=== PATIENT | male | born 1960 | race Caucasian/White ===

== ENCOUNTER 2017-05-24 08:57 | Inpatient (IN) | payer BC ==
[~2017-05-24] VITALS: Ht 170.2 cm; Wt 90.5 kg
[2017-05-24] VITALS (7 sets, daily range): BP systolic 141–170; BP diastolic 77–88; PULSE 56–68; RESP 17–18; TEMP 97.7–98.1; O2SAT 96–100
[2017-05-24] MEDS ORDERED: HYDROmorphone HCL PF 1 MG/ML VIAL IV PUSH ONE (09:15)
[2017-05-24] MEDS ORDERED: SODIUM CHLOR 0.9% 1000 ML INJ 1,000 ML IV ONE (09:15)
[2017-05-24] MEDS ORDERED: ONDANSETRON HCL 4 MG/2 ML VIAL IV PUSH ONE (09:15)
--- NOTE | 2017-05-24 09:21 | PD ---
HPI Chief Complaint: Abdominal Pain Time Seen by Provider: 09:15 Travel History International Travel<30 days: No Contact w/Intl Traveler<30days: No Traveled to known affect area: No History of Present Illness HPI 57-year-old male patient with history of daily alcohol use, presents to the ER today with one-day history of upper abdominal pains which she currently measures at a 9 out of 10 along with nausea and vomiting. He denies any diarrhea, fevers, or any other symptoms. He states that it gets worse with movements. He denies any previous history of similar symptoms although he has had problems with gastritis once before. Modifying Factors: None Associated Signs & Symptoms: Upper abdominal pains, nausea and vomiting Risk Factors: Daily alcohol use PFSH Social History Tobacco Use: No Allergies-Medications (Allergen,Severity, Reaction): Coded Allergies: No Known Allergies (Unverified , 05/24/17) Review of Systems Except as stated in HPI: all other systems reviewed are Neg Physical Exam Narrative GENERAL: Well-developed middle age white male patient currently and moderate distress. Awake and oriented 3. SKIN: Focused skin assessment warm/dry. HEAD: Atraumatic. Normocephalic. EYES: Pupils equal and round. No scleral icterus. No injection or drainage. ENT: No nasal bleeding or discharge. Mucous membranes pink and moist. NECK: Trachea midline. No JVD. CARDIOVASCULAR: Regular rate and rhythm. No murmur appreciated. RESPIRATORY: No accessory muscle use. Clear to auscultation. Breath sounds equal bilaterally. GASTROINTESTINAL: Abdomen soft, diffuse upper abdominal tenderness without guarding or rebound, nondistended. Hepatic and splenic margins not palpable. MUSCULOSKELETAL: No obvious deformities. No clubbing. No cyanosis. No edema. NEUROLOGICAL: Awake and alert. No obvious cranial nerve deficits. Motor grossly within normal limits. Normal speech. PSYCHIATRIC: Appropriate mood and affect; insight and judgment normal. Data Data Last Documented VS Vital Signs Date Time Temp Pulse Resp B/P (MAP) Pulse Ox O2 Delivery O2 Flow Rate FiO2 05/24/17 12:08 67 17 141/82 (101) 100 Room Air 05/24/17 08:58 97.9 Orders Orders Complete Blood Count With Diff (05/24/17 09:12) Comprehensive Metabolic Panel (05/24/17 09:12) Lipase (05/24/17 09:12) Urinalysis - C+S If Indicated (05/24/17 09:12) Iv Access Insert/Monitor (05/24/17 09:12) Ecg Monitoring (05/24/17 09:12) Oximetry (05/24/17 09:12) Electrocardiogram (05/24/17 09:12) Sodium Chlor 0.9% 1000 Ml Inj (Ns 1000 M (05/24/17 09:15) Ondansetron Inj (Zofran Inj) (05/24/17 09:15) Hydromorphone Pf Inj (Dilaudid Pf Inj) (05/24/17 09:15) Ct Abd/Pel W Iv Contrast(Rout) (05/24/17 10:09) Iohexol 350 Inj (Omnipaque 350 Inj) (05/24/17 11:17) Admit Order (Ed Use Only) (05/24/17 12:05) Labs Laboratory Tests Test 05/24/17 09:25 05/24/17 10:08 White Blood Count 6.0 TH/MM3 Red Blood Count 4.61 MIL/MM3 Hemoglobin 13.8 GM/DL Hematocrit 39.6 % Mean Corpuscular Volume 85.9 FL Mean Corpuscular Hemoglobin 29.8 PG Mean Corpuscular Hemoglobin Concent 34.7 % Red Cell Distribution Width 15.3 % Platelet Count 210 TH/MM3 Mean Platelet Volume 6.9 FL Neutrophils (%) (Auto) 69.0 % Lymphocytes (%) (Auto) 16.3 % Monocytes (%) (Auto) 14.0 % Eosinophils (%) (Auto) 0.3 % Basophils (%) (Auto) 0.4 % Neutrophils # (Auto) 4.2 TH/MM3 Lymphocytes # (Auto) 1.0 TH/MM3 Monocytes # (Auto) 0.8 TH/MM3 Eosinophils # (Auto) 0.0 TH/MM3 Basophils # (Auto) 0.0 TH/MM3 CBC Comment AUTO DIFF Differential Comment AUTO DIFF CONFIRMED Blood Urea Nitrogen 9 MG/DL Creatinine 1.11 MG/DL Random Glucose 131 MG/DL Total Protein 10.3 GM/DL Albumin 4.4 GM/DL Calcium Level 9.6 MG/DL Alkaline Phosphatase 143 U/L Aspartate Amino Transf (AST/SGOT) 96 U/L Alanine Aminotransferase (ALT/SGPT) 100 U/L Total Bilirubin 2.9 MG/DL Sodium Level 135 MEQ/L Potassium Level 3.8 MEQ/L Chloride Level 104 MEQ/L Carbon Dioxide Level 23.7 MEQ/L Anion Gap 7 MEQ/L Estimat Glomerular Filtration Rate 68 ML/MIN Lipase 192 U/L Urine Color YELLOW Urine Turbidity CLEAR Urine pH 5.5 Urine Specific [place] 1.016 Urine Protein TRACE mg/dL Urine Glucose (UA) NEG mg/dL Urine Ketones NEG mg/dL Urine Occult Blood NEG Urine Nitrite NEG Urine Bilirubin NEG Urine Urobilinogen 2.0 MG/DL Urine Leukocyte Esterase NEG Urine RBC LESS THAN 1 /hpf Urine WBC LESS THAN 1 /hpf Urine Hyaline Casts 1 /lpf Urine Mucus FEW /lpf Microscopic Urinalysis Comment CULT NOT INDICATED MDM Medical Decision Making Medical Screen Exam Complete: Yes Emergency Medical Condition: Yes Medical Record Reviewed: Yes Interpretation(s) Laboratory Tests Test 05/24/17 09:25 05/24/17 10:08 Mean Platelet Volume 6.9 FL (7.0-11.0) Monocytes (%) (Auto) 14.0 % (0.0-8.0) Random Glucose 131 MG/DL (74-106) Total Protein 10.3 GM/DL (6.4-8.2) Alkaline Phosphatase 143 U/L (45-117) Aspartate Amino Transf (AST/SGOT) 96 U/L (15-37) Alanine Aminotransferase (ALT/SGPT) 100 U/L (12-78) Total Bilirubin 2.9 MG/DL (0.2-1.0) Sodium Level 135 MEQ/L (136-145) Estimat Glomerular Filtration Rate 68 ML/MIN (>89) Urine Mucus FEW /lpf (OCC) Last 24 hours Impressions Abdomen/Pelvis CT 05/24/17 1009 Signed Impressions: Service Date/Time: Monday, May 24, 2017 10:59 - CONCLUSION: Negative for an acute process. Gallstones with mild gallbladder wall thickening Mitchell Robledo MD FACR Differential Diagnosis Abdominal pain, nausea and vomiting: Gastroenteritis versus gastritis versus pancreatitis versus cholecystitis Narrative Course Lab work shows liver enzyme elevations. CAT scan was ordered for further evaluation. It shows mild gallbladder wall thickening, questionable for underlying cholecystitis. Case was initially discussed with Dr. Garnica who states that patient would need further workup and recommends medical admission and GI consult and surgical consult. Case was then discussed with Dr. Singh for admission. Diagnosis Primary Impression: Abdominal pain Additional Impression: Cholecystitis Admitting Information Admitting Physician Requests: it Quita Guzman MD May 24, 2017 09:21
[2017-05-24 09:44] LABS: AUTOMATED NEUTROPHIL # 4.2 TH/MM3 (1.8-7.7); BASOPHIL % 0.4 % (0.0-2.0); EOSINOPHIL % 0.3 % (0.0-4.0); HEMATOCRIT 39.6 % (39.0-51.0); LYMPH % 16.3 % (9.0-44.0); MEAN CELL VOLUME 85.9 FL (80.0-100.0); MEAN CORPUSCULAR HEMOGLOBIN 29.8 PG (27.0-34.0); MEAN CORPUSCULAR HGB CONC 34.7 % (32.0-36.0); PLATELET COUNT 210 TH/MM3 (150-450); RED BLOOD COUNT 4.61 MIL/MM3 (4.50-5.90); RED CELL DISTRIBUTION WIDTH 15.3 % (11.6-17.2)
[2017-05-24 09:46] LABS: HEMO FLAGS AUTO DIFF
[2017-05-24 10:00] LABS: ANION GAP 7 MEQ/L (5-15); AST (GOT) 96 U/L (15-37); BICARBONATE 23.7 MEQ/L (21.0-32.0); BLOOD UREA NITROGEN 9 MG/DL (7-18); CHLORIDE 104 MEQ/L (98-107); GLOMERULAR FILTRATION RATE 68 ML/MIN (>89); POTASSIUM 3.8 MEQ/L (3.5-5.1); SODIUM (NA) 135 MEQ/L (136-145)
[2017-05-24 10:01] LABS: ALT (GPT) 100 U/L (12-78)
[2017-05-24 10:04] LABS: ALKALINE PHOSPHATASE 143 U/L (45-117); TOTAL BILIRUBIN ADULT 2.9 MG/DL (0.2-1.0)
[2017-05-24 10:19] LABS: BLOOD, URINE NEG (NEG); COMMENT (UR) CULT NOT INDICATED; CULTURE IF INDICATED CULT NOT INDICATED; GLUCOSE,URINE NEG (NEG); HYALINE CAST, URINE 1 /lpf (RARE); KETONE, URINE NEG (NEG); MUCUS URINE FEW /lpf (OCC); NITRITE,URINE NEG (NEG); PH, URINE 5.5 (5.0-8.5); URINE COLOR YELLOW (YELLW/STRAW)
[2017-05-24 10:42] LABS: SCAN/DIFF AUTO DIFF CONFIRMED
[2017-05-24] MEDS ORDERED: IOHEXOL 350 MG/ML 10 ML VIAL (for RAD DIAG) IVCONTRAST ONE (11:17)
--- NOTE | 2017-05-24 11:28 | RADRPT ---
EXAM DATE/TIME: 05/24/2017 10:59 [facility] COMPARISON: No previous studies available for comparison. INDICATIONS : Nausea, vomiting and abdominal pain since last night. IV CONTRAST: 97 cc Omnipaque 350 (iohexol) IV ORAL CONTRAST: No oral contrast ingested. RADIATION DOSE: 8.43 CTDIvol (mGy) MEDICAL HISTORY : None SURGICAL HISTORY : None. ENCOUNTER: Initial ACUITY: 1 day PAIN SCALE: 4/10 LOCATION: chest TECHNIQUE: Volumetric scanning of the abdomen and pelvis was performed. Using automated exposure control and ad justment of the mA and/or kV according to patient size, radiation dose was kept as low as reasonably achievable to obtain optimal diagnostic quality images. DICOM format image data is available electro nically for review and comparison. FINDINGS: The lung base is are clear. The liver, spleen, pancreas unremarkable Gallstones with minimal gallbladder wall thickening is evident. Hiatal hernia is noted. There is symmetric renal function Bowel gas pattern is unremarkable. Pelvic contents appear normal Abdominal wall is intact There is no colitis. There is retrograde or adenopathy. CONCLUSION: Negative for an acute process. Gallstones with mild gallbladder wall thickening Mitchell Robledo MD FACR on May 24, 2017 at 11:24 Board Certified Radiologist. This report was verified electronically.
[2017-05-24] MEDS ORDERED: ACETAMINOPHEN 325 MG TAB PO PRN (12:15)
[2017-05-24] MEDS ORDERED: ENALAPRILAT 1.25 MG/ML VIAL IV PUSH PRN (12:15)
[2017-05-24] MEDS ORDERED: HYDROmorphone HCL PF 0.5 MG/0.5 ML SYRINGE IV PUSH PRN (12:15)
[2017-05-24] MEDS ORDERED: ONDANSETRON HCL 4 MG/2 ML VIAL IV PUSH PRN (12:15)
--- NOTE | 2017-05-24 12:31 | HHI.HP ---
[facility] Service [facility] Primary Care Physician Unknown Admission Diagnosis abdominal pain/elevated liver enzymes/cholecystitis Diagnoses: (1) Abdominal pain Diagnosis: Principal (2) Cholecystitis Diagnosis: Principal Chief Complaint: abdominal pain Travel History International Travel<30 Days: No Contact w/Intl Traveler <30 Da: No Traveled to Known Affected Are: No History of Present Illness patient is a 57 y/o male with history of RA, with history of chronic alcohol abuse, presented to ER with abdominal pain. he says that the pain started around 3 in the morning. pain was epigastric and severe in intensity. pain was associated with some nausea, a few episodes of emesis and some diarrhea. he denies any fever or chills. he says that he had similar episode of abdominal pain about a year ago and he was told that he had ' an ulcer'. pain was mild at the time of my evaluation. Review of Systems Constitutional: DENIES: Fever, Weight loss, Chills, Night Sweats Eyes: DENIES: Blurred vision, Diplopia, Vision loss, Double Vision Ears, nose, mouth, throat: DENIES: Tinnitus, Vertigo, Throat pain, Epistaxis Respiratory: DENIES: Apneas, Cough, Snoring, Wheezing, Hemoptysis, Sputum production, Shortness of breath Cardiovascular: DENIES: Chest pain, Palpitations, Syncope, Dyspnea on Exertion , PND, Lower Extremity Edema, Orthopnea, Claudication Gastrointestinal: COMPLAINS OF: Abdominal pain, Diarrhea, Nausea, Vomiting, DENIES: Black stools, Bloody stools, Constipation, Difficulty Swallowing, Anorexia Genitourinary: DENIES: Urinary frequency, Urgency, Hematuria, Dysuria Musculoskeletal: DENIES: Joint pain, Muscle aches, Stiffness, Joint Swelling Integumentary: DENIES: Rash Neurologic: DENIES: Abnormal gait, Headache, Localized weakness, Paresthesias, Seizures, Speech Problems, Tremor, Poor Balance Psychiatric: DENIES: Anxiety, Confusion, Mood changes, Depression, Hallucinations, Agitation, Suicidal Ideation, Homicidal Ideation, Delusions Past Family Social History Past Medical History rheumatoid arthritis. Past Surgical History surgery on the right upper extremity. Reported Medications to be verified. Allergies: Coded Allergies: No Known Allergies (Unverified , 05/24/17) Active Ordered Medications Current Medications Sodium Chloride 1,000 ml @ 999 mls/hr BOLUS ONCE IV Last administered on 09:33; Start 05/24/17 at 09:15; Stop 05/24/17 at 10:15; Status DC Ondansetron HCl (Zofran Inj) 4 mg ONCE ONCE IV PUSH Last administered on 05/24 09:34; Start 05/24/17 at 09:15; Stop 05/24/17 at 09:16; Status DC Hydromorphone HCl (Dilaudid Pf Inj) 1 mg ONCE ONCE IV PUSH Last administered on 05/24/17 09:34; Start 05/24/17 at 09:15; Stop 05/24/17 at 09:16; Status DC Iohexol (Omnipaque 350 Inj) 97 ml STK-MED ONCE IVCONTRAST Last administered on 05/24/17 11:17; Start 05/24/17 at 11:17; Stop 05/24/17 at 11:18; Status DC Family History not relevant to this presentation. Social History quit smoking years ago. drinks ten beers a day. Physical Exam Vital Signs Vital Signs Date Time Temp Pulse Resp B/P (MAP) Pulse Ox O2 Delivery O2 Flow Rate FiO2 05/24/17 10:34 17 05/24/17 10:09 68 17 161/86 (111) 99 Room Air 05/24/17 09:39 68 17 170/88 (115) 99 Room Air 05/24/17 08:58 97.9 56 18 167/86 (113) 100 Room Air Physical Exam GENERAL: This is a well-nourished, well-developed patient, in no apparent distress. SKIN: No rashes, ecchymoses or lesions. Cool and dry. HEAD: Atraumatic. Normocephalic. No temporal or scalp tenderness. EYES: Pupils equal round and reactive. Extraocular motions intact. No scleral icterus. No injection or drainage. ENT: Nose without bleeding, purulent drainage or septal hematoma. Throat without erythema, tonsillar hypertrophy or exudate. Uvula midline. Airway patent. NECK: Trachea midline. No JVD or lymphadenopathy. Supple, nontender, no meningeal signs. CARDIOVASCULAR: Regular rate and rhythm without murmurs, gallops, or rubs. RESPIRATORY: Clear to auscultation. Breath sounds equal bilaterally. No wheezes , rales, or rhonchi. GASTROINTESTINAL: Abdomen soft, mild epigastric tenderness, nondistended. No hepato-splenomegaly, or palpable masses. No guarding. MUSCULOSKELETAL: Extremities without clubbing, cyanosis, or edema. No joint tenderness, effusion, or edema noted. No calf tenderness. Negative Homans sign bilaterally. NEUROLOGICAL: Awake and alert. Cranial nerves II through XII intact. Motor and sensory grossly within normal limits. Five out of 5 muscle strength in all muscle groups. Normal speech. Laboratory Laboratory Tests Test 05/24/17 09:25 05/24/17 10:08 White Blood Count 6.0 Red Blood Count 4.61 Hemoglobin 13.8 Hematocrit 39.6 Mean Corpuscular Volume 85.9 Mean Corpuscular Hemoglobin 29.8 Mean Corpuscular Hemoglobin Concent 34.7 Red Cell Distribution Width 15.3 Platelet Count 210 Mean Platelet Volume 6.9 Neutrophils (%) (Auto) 69.0 Lymphocytes (%) (Auto) 16.3 Monocytes (%) (Auto) 14.0 Eosinophils (%) (Auto) 0.3 Basophils (%) (Auto) 0.4 Neutrophils # (Auto) 4.2 Lymphocytes # (Auto) 1.0 Monocytes # (Auto) 0.8 Eosinophils # (Auto) 0.0 Basophils # (Auto) 0.0 CBC Comment AUTO DIFF Differential Comment AUTO DIFF CONFIRMED Blood Urea Nitrogen 9 Creatinine 1.11 Random Glucose 131 Total Protein 10.3 Albumin 4.4 Calcium Level 9.6 Alkaline Phosphatase 143 Aspartate Amino Transf (AST/SGOT) 96 Alanine Aminotransferase (ALT/SGPT) 100 Total Bilirubin 2.9 Sodium Level 135 Potassium Level 3.8 Chloride Level 104 Carbon Dioxide Level 23.7 Anion Gap 7 Estimat Glomerular Filtration Rate 68 Lipase 192 Urine Color YELLOW Urine Turbidity CLEAR Urine pH 5.5 Urine Specific [place] 1.016 Urine Protein TRACE Urine Glucose (UA) NEG Urine Ketones NEG Urine Occult Blood NEG Urine Nitrite NEG Urine Bilirubin NEG Urine Urobilinogen 2.0 Urine Leukocyte Esterase NEG Urine RBC LESS THAN 1 Urine WBC LESS THAN 1 Urine Hyaline Casts 1 Urine Mucus FEW Microscopic Urinalysis Comment CULT NOT INDICATED Result Diagram: 05/24/1792405/24/17924 Imaging Last Impressions Abdomen/Pelvis CT 05/24/17 1009 Signed Impressions: Service Date/Time: Wednesday, May 24, 2017 10:59 - CONCLUSION: Negative for an acute process. Gallstones with mild gallbladder wall thickening Mitchell Robledo MD FACR EKG; sinus rhythm with no acute ST-T changes. Caprini VTE Risk Assessment Caprini VTE Risk Assessment: Mod/High Risk (score >= 2) Caprini Risk Assessment Model Point Value = 1 Point Value = 2 Point Value = 3 Point Value = 5 Age 41-60 Minor surgery BMI > 25 kg/m2 Swollen legs Varicose veins or History of unexplained or recurrent spontaneous Oral contraceptives or hormone replacement Sepsis (< 1 month) Serious lung disease, including pneumonia (< 1 month) Abnormal pulmonary function Acute myocardial infarction Congestive heart failure (< 1 month) History of inflammatory bowel disease Medical patient at bed rest Age 61-74 Arthroscopic surgery Major open surgery (> 45 min) Laparoscopic surgery (> 45 min) Malignancy Confined to bed (> 72 hours) Immobilizing plaster cast Central venous access Age >= 75 History of VTE Family history of VTE Factor V Leiden Prothrombin [id number] Lupus anticoagulant Anticardiolipin antibodies Elevated serum homocysteine Heparin-induced thrombocytopenia Other congenital or acquired thrombophilia Stroke (< 1 month) Elective arthroplasty Hip, pelvis, or leg fracture Acute spinal cord injury (< 1 month) Prophylaxis Regimen Total Risk Factor Score Risk Level Prophylaxis Regimen 0-1 Low Early ambulation 2 Moderate Order ONE of the following: *Sequential Compression Device (SCD) *Heparin 5000 units SQ BID 3-4 Higher Order ONE of the following medications: *Heparin 5000 units SQ TID *Enoxaparin/Lovenox 40 mg SQ daily (WT < 150 kg, CrCl > 30 mL/min) *Enoxaparin/Lovenox 30 mg SQ daily (WT < 150 kg, CrCl > 10-29 mL/min) *Enoxaparin/Lovenox 30 mg SQ BID (WT < 150 kg, CrCl > 30 mL/min) AND/OR *Sequential Compression Device (SCD) 5 or more Highest Order ONE of the following medications: *Heparin 5000 units SQ TID (Preferred with Epidurals) *Enoxaparin/Lovenox 40 mg SQ daily (WT < 150 kg, CrCl > 30 mL/min) *Enoxaparin/Lovenox 30 mg SQ daily (WT < 150 kg, CrCl > 10-29 mL/min) *Enoxaparin/Lovenox 30 mg SQ BID (WT < 150 kg, CrCl > 30 mL/min) AND *Sequential Compression Device (SCD) Assessment and Plan Assessment and Plan A/P - abdominal pain with cholelithiasis / elevated LFT's and history of chronic alcohol abuse keep NPO for now- continue with supportive care with IV fluid- antiemetics and pain control. check hepatitis panel- consult general surgery and GI. repeat LFT's in am. -alcohol abuse; watch for withdrawal- place on CIWA protocol. advised to stop drinking. -history of rheumatoid arthritis- f/u as outpatient. -DVT prophylaxis with SCD's- pending surgery and GI evaluation. Discussed Condition With ER physician and the patient. Physician Certification 2 Midnight Certification Type: Admission for Inpatient Services Order for Inpatient Services The services are ordered in accordance with Medicare regulations or non- Medicare payer requirements, as applicable. In the case of services not specified as inpatient-only, they are appropriately provided as inpatient services in accordance with the 2-midnight benchmark. Estimated LOS (days): 2 days is the estimated time the patient will need to remain in the hospital, assuming treatment plan goals are met and no additional complications. Post-Hospital Plan: Home Problem Qualifiers (1) Abdominal pain: Qualified Codes: R10.13 - Epigastric pain Marge Mccarty MD May 24, 2017 12:31
[2017-05-24] MEDS ORDERED: LORazepam 1 MG TAB PO PRN (12:45)
[2017-05-24] MEDS ORDERED: LORazepam 2 MG/ML VIAL IV PUSH PRN ×4 (12:45)
[2017-05-24] MEDS ORDERED: FLUMAZENIL 0.5 MG/5 ML VIAL IV PUSH PRN (12:45)
[2017-05-24] MEDS ORDERED: LORazepam 2 MG TAB PO PRN (12:45)
--- NOTE | 2017-05-24 12:53 | EKG ---
Date Performed: 05/24/2017 Time Performed: 09:46:06 PTAGE: 57 years EKG: Baseline artifact present Probable Sinus rhythm WITH SINUS ARRHYTHMIA PROLONGED QT INTERVAL ABNORMAL ECG INTERPRETATION BASED ON A DEFAULT AGE OF 39 YEARS NO PREVIOUS TRACING DOCTOR: Ehsan Lawrence Interpretating Date/Time 05/24/2017 12:51:14
--- NOTE | 2017-05-24 13:32 | MB ---
cc: SILVANO MARUQIS M.D. DATE OF CONSULTATION: 05/24/2017 REASON FOR CONSULTATION Cholecystitis. HISTORY OF PRESENT ILLNESS The patient is a 57-year-old male with a history of rheumatoid arthritis and chronic alcohol abuse as well as previous extensive smoking history, who presented to the ER with abdominal pain of one-day duration. The patient reports that this started after eating nachos. He had an episode about a year ago and was told he had an ulcer up in [place] when he was seen in urgent care. He does have a family doctor [place] [employer]. The patient reports that he had some emesis and diarrhea as well as nausea. The patient has had a CT scan which demonstrates slightly thickened gallbladder wall and gallstones. REVIEW OF SYSTEMS Negative except for GI with abdominal pain, nausea, vomiting and diarrhea. PAST MEDICAL HISTORY 1. 23-weql-eard smoking history, quit in 2008. He does not require oxygen. 2. Rheumatoid arthritis. PAST SURGICAL HISTORY He had surgery on both wrists with plates and screws. He is also has pins in the left hip from a fall. ALLERGIES The patient has no known allergies. HE DOES NOT HAVE AN ALLERGY TO ATIVAN, BUT HE HAS AN IDIOSYNCRATIC REACTION WHERE HE CANNOT REMEMBER ANYTHING AND BECOMES UNRULY. MEDICATIONS He is not on any medications. SOCIAL HISTORY He drinks 10 beers a day. He states he quit about 6 months ago and had no withdrawal symptoms. PHYSICAL EXAMINATION GENERAL: A male who appears comfortable. VITAL SIGNS: BP 141/82, pulse 67, respirations 17, 100% saturation on room air. HEENT: Sclera anicteric. CHEST: Clear to auscultation. CARDIAC: Regular rate rhythm. ABDOMEN: Mild epigastric pain without guarding or rebound. There is very minimal right upper quadrant pain with no guarding. The patient has a 2 cm umbilical hernia that is reducible and mildly tender to palpation. There are no groin hernias. EXTREMITIES: Pulses are intact. NEUROLOGIC: Nonfocal. LABORATORY WBC 6.0, platelets 210,000. Sodium 135, potassium 3.8, BUN 9, creatinine 1.1, total bilirubin 2.9, AST 96, ALT 100, alkaline phosphatase 143, total protein 10.3, lipase 192. Urinalysis is negative except for trace protein. IMAGING Imaging demonstrates findings with slightly thickened gallbladder wall and gallstones. There is no acute process noted. ASSESSMENT Cholecystitis with possible choledocholithiasis. The patient also has mild hypertension, although this may be secondary to his pain. Multiple other vital signs demonstrate elevated diastolic blood pressure. The patient does not follow-up regularly with the family physician. PLAN/RECOMMENDATIONS Would recommend consideration of blood pressure medicine while he is in the hospital to be started and GI input. Will order repeat liver function tests. Not sure whether he would be able to have MRCP due to his hardware in his wrists and his hip. Simple follow-up labs tomorrow may reveal whether or not he has passed a gallstone. If they remain elevated he may require ERCP. We will await GI input. I have discussed with the patient and his that if he has any procedures tomorrow then surgery could be performed on Monday. I have discussed with them preliminarily risks of surgery including but not limited to bleeding, infection, bile duct injury, bowel injury, possible need for drainage, postoperative endoscopy, or reoperation. They vocalize understanding and are agreeable to the plan of action. MD ANTHONY Mckoy/LUIS /1:00 PM /1:10 PM
[2017-05-24] MEDS: SODIUM CHLOR 0.9% 1000 ML INJ 1,000 ML IV SCH ×2 (13:52→22:19)
--- NOTE | 2017-05-24 15:27 | PD.CONS ---
HPI History of Present Illness This is a 57 year old male with hx ETOH abuse, RA on remicade, who presented with abd pain, n/v, loose stool that started this morning. THe pain is all over his abd, no aggravating or relieving factors. He is feeling better after dilaudid in ED. He had similar episode 1 year ago. Denies blood in emesis, blood in stool, black tarry stool, jaundice, fever, weight loss. Never had EGD or colonoscopy. (Michelle Thurston) PFSH Past Medical History rheumatoid arthritis. Past Surgical History hardware placement both wrists pinning left hip (Michelle Thurston) Coded Allergies: lorazepam (Verified Adverse Reaction, Unknown, Irritability/Anxiety, 05/24) STATES "IT MAKES ME GO CRAZY" Family History denies Social History quit smoking years ago. drinks ten beers a day. (Michelle Thurston) Review of Systems Constitutional: DENIES: Fever Endocrine: DENIES: Polydipsia Eyes: DENIES: Blurred vision Ears, nose, mouth, throat: DENIES: Hearing loss Respiratory: DENIES: Cough Cardiovascular: DENIES: Chest pain Gastrointestinal: COMPLAINS OF: Abdominal pain, Diarrhea, Nausea, Vomiting, DENIES: Black stools, Bloody stools, Constipation, Hematemesis Genitourinary: DENIES: Hematuria Musculoskeletal: DENIES: Joint Swelling Integumentary: DENIES: Rash Hematologic/lymphatic: DENIES: Bruising Neurologic: DENIES: Abnormal gait Psychiatric: DENIES: Confusion (Michelle Thurston) GI Exam Vitals I&O Vital Signs Date Time Temp Pulse Resp B/P (MAP) Pulse Ox O2 Delivery O2 Flow Rate FiO2 05/24/17 15:00 97.7 59 18 148/85 (106) 97 05/24/17 14:21 05/24/17 14:05 68 17 153/85 (107) 100 Room Air 05/24/17 12:08 67 17 141/82 (101) 100 Room Air 05/24/17 10:34 17 05/24/17 10:09 68 17 161/86 (111) 99 Room Air 05/24/17 09:39 68 17 170/88 (115) 99 Room Air 05/24/17 08:58 97.9 56 18 167/86 (113) 100 Room Air I/O 05/23/17 05/23/17 05/23/17 05/24/17 05/24/17 05/24/17 07:00 15:00 23:00 07:00 15:00 23:00 Intake Total 1000 ml Balance 1000 ml Intake IV Total 1000 ml Imaging Last Impressions Abdomen/Pelvis CT 05/24/17 1009 Signed Impressions: Service Date/Time: Wednesday, May 24, 2017 10:59 - CONCLUSION: Negative for an acute process. Gallstones with mild gallbladder wall thickening Mitchell Robledo MD FACR Laboratory Test 05/24/17 09:25 05/24/17 10:08 White Blood Count 6.0 TH/MM3 Red Blood Count 4.61 MIL/MM3 Hemoglobin 13.8 GM/DL Hematocrit 39.6 % Mean Corpuscular Volume 85.9 FL Mean Corpuscular Hemoglobin 29.8 PG Mean Corpuscular Hemoglobin Concent 34.7 % Red Cell Distribution Width 15.3 % Platelet Count 210 TH/MM3 Mean Platelet Volume 6.9 FL Neutrophils (%) (Auto) 69.0 % Lymphocytes (%) (Auto) 16.3 % Monocytes (%) (Auto) 14.0 % Eosinophils (%) (Auto) 0.3 % Basophils (%) (Auto) 0.4 % Neutrophils # (Auto) 4.2 TH/MM3 Lymphocytes # (Auto) 1.0 TH/MM3 Monocytes # (Auto) 0.8 TH/MM3 Eosinophils # (Auto) 0.0 TH/MM3 Basophils # (Auto) 0.0 TH/MM3 CBC Comment AUTO DIFF Differential Comment AUTO DIFF CONFIRMED Blood Urea Nitrogen 9 MG/DL Creatinine 1.11 MG/DL Random Glucose 131 MG/DL Total Protein 10.3 GM/DL Albumin 4.4 GM/DL Calcium Level 9.6 MG/DL Alkaline Phosphatase 143 U/L Aspartate Amino Transf (AST/SGOT) 96 U/L Alanine Aminotransferase (ALT/SGPT) 100 U/L Total Bilirubin 2.9 MG/DL Sodium Level 135 MEQ/L Potassium Level 3.8 MEQ/L Chloride Level 104 MEQ/L Carbon Dioxide Level 23.7 MEQ/L Anion Gap 7 MEQ/L Estimat Glomerular Filtration Rate 68 ML/MIN Lipase 192 U/L Urine Color YELLOW Urine Turbidity CLEAR Urine pH 5.5 Urine Specific [place] 1.016 Urine Protein TRACE mg/dL Urine Glucose (UA) NEG mg/dL Urine Ketones NEG mg/dL Urine Occult Blood NEG Urine Nitrite NEG Urine Bilirubin NEG Urine Urobilinogen 2.0 MG/DL Urine Leukocyte Esterase NEG Urine RBC LESS THAN 1 /hpf Urine WBC LESS THAN 1 /hpf Urine Hyaline Casts 1 /lpf Urine Mucus FEW /lpf Microscopic Urinalysis Comment CULT NOT INDICATED Physical Examination HEENT: PERRL; normocephalic; atraumatic; no jaundice. CHEST: CTA CARDIAC: RRR ABDOMEN: Soft, mildly distended, mild diffuse TTP; no hepatosplenomegaly; bowel sounds are present in all four quadrants. EXTREMITIES: No clubbing, cyanosis, or edema. SKIN: Normal; no rash; no jaundice. MARKER SHIPMENTS: No focal deficits; alert and oriented times three. (Michelle Thurston) Assessment and Plan Plan - abd pain, n/v, diarrhea, elevated LFTs - unclear etiology could be gallstones. CT showed gallstones with minimal GB wall thickening. LFTs elevated obstructive pattern. Never had EGD or colonoscopy. heavy drinker. has evaluated, plasn for cholecystectomy poss monday. spoke with radiology , he can have MRCP PLAN - MRCP - NPO until after MRCP - rck LFTs in am - await hepatitis panel - supportive care - further recs to follow This pt seen by myself and Dr Grijalva and this note is written on her behalf (Michelle Thurston) Physician Comments seen, examined agree with above await mrcp report screening for hepatitis c avoid etoh if mrcp negative consider liver biopsy at the time of cholecystectomy cleat liquid diet (Magalys Grijalva MD) Michelle Thurston May 24, 2017 15:27 Magalys Grijalva MD May 24, 2017 19:47
--- NOTE | 2017-05-24 20:29 | RADRPT ---
EXAM DATE/TIME: 05/24/2017 18:09 [facility] COMPARISON: CT ABDOMEN & PELVIS W CONTRAST, May 24, 2017, 10:59. INDICATIONS : Abdominal pain. Elevated liver enzymes. MEDICAL HISTORY : None. SURGICAL HISTORY : Pin in left hip. Plates in bilateral wrists. ENCOUNTER: Subsequent ACUITY: 2 day PAIN SCORE: 0/10 LOCATION: Abdomen. TECHNIQUE: Multiplanar, multisequence magnetic resonance imaging of the abdomen was performed. High-resolution 3D dataset was utilized to reconstruct maximum-intensity projection (MIP) images. FINDINGS: INTRAHEPATIC BILE DUCTS: Within normal limits. No significant anatomical variant is present. EXTRAHEPATIC BILE DUCTS: The common bile duct measures 3 mm. No stone or filling defect is identified. GALLBLADDER: Small stones in the gallbladder lumen. There appears to be some gallbladder wall thickening. LIVER: Normal size with abnormal signal intensity. Increased T1 and diminished T2 signal with some signal lo ss on the opposed phase imaging characteristic of fatty infiltration. No concerning liver lesion is i dentified on this non-contrast exam. PANCREAS: The main pancreatic duct is normal in size. There is no significant anatomical variant. Signal inte nsity is within normal limits. No mass is visualized on this non-contrast exam. OTHER: The remaining visualized structures demonstrate no acute abnormality on this non-contrast exam. Small to moderate hiatal hernia. CONCLUSION: 1. Cholelithiasis with some gallbladder wall thickening. 2. No intra-or extrahepatic biliary ductal dilatation. 3. Diffuse hepatic fatty infiltration. 4. Small to moderate hiatal hernia. Gonzales Reese MD on May 24, 2017 at 20:21 Board Certified Radiologist. This report was verified electronically.
[2017-05-24 21:08] LABS: INTERNATIONAL NORMALIZED RATIO 1.1 RATIO; PROTHROMBIN TIME - PATIENT 12.7 SEC (9.8-11.6)
[2017-05-25] VITALS (8 sets, daily range): BP systolic 127–159; BP diastolic 70–87; PULSE 52–84; RESP 16–20; TEMP 97.4–98.4; O2SAT 94–98
[2017-05-25] MEDS: SODIUM CHLOR 0.9% 1000 ML INJ 1,000 ML IV SCH ×2 (02:02→18:18)
[2017-05-25 09:10] LABS: ALKALINE PHOSPHATASE 105 U/L (45-117); ALT (GPT) 78 U/L (12-78); ANION GAP 7 MEQ/L (5-15); AST (GOT) 83 U/L (15-37); BLOOD UREA NITROGEN 7 MG/DL (7-18); CHLORIDE 105 MEQ/L (98-107); GLOMERULAR FILTRATION RATE 93 ML/MIN (>89); POTASSIUM 3.6 MEQ/L (3.5-5.1); SODIUM (NA) 138 MEQ/L (136-145)
[2017-05-25] MEDS ORDERED: INFLUENZA VIRUS VACCINE (QUADRIVALENT) 0.5 ML SYR IM ONE (10:00)
[2017-05-25] MEDS ORDERED: PNEUMOCOCCAL POLYVALENT INJ 25 MCG/0.5 ML SYR IM ONE (10:00)
--- NOTE | 2017-05-25 11:53 | HHI.PR ---
Subjective Remarks He would like to eat. Abdominal pain is better. Objective Vitals Vital Signs Date Time Temp Pulse Resp B/P (MAP) Pulse Ox O2 Delivery O2 Flow Rate FiO2 05/25/17 07:59 97.8 62 20 139/84 (102) 95 05/25/17 04:18 97.4 52 18 127/76 (93) 97 05/25/17 00:05 97.9 65 20 140/73 (95) 94 05/24/17 19:38 98.1 63 18 164/77 (106) 96 05/24/17 15:00 97.7 59 18 148/85 (106) 97 05/24/17 14:21 05/24/17 14:05 68 17 153/85 (107) 100 Room Air 05/24/17 12:08 67 17 141/82 (101) 100 Room Air I/O 05/24/17 05/24/17 05/24/17 05/25/17 05/25/17 05/25/17 07:00 15:00 23:00 07:00 15:00 23:00 Intake Total 1000 ml 904 ml Balance 1000 ml 904 ml Intake IV Total 1000 ml 904 ml # Voids 2 # Bowel Movements 0 Result Diagram: 05/24/17 0925 05/25/17 0725 Imaging Last Impressions Abdomen/Pelvis CT 05/24/17 1009 Signed Impressions: Service Date/Time: Wednesday, May 24, 2017 10:59 - CONCLUSION: Negative for an acute process. Gallstones with mild gallbladder wall thickening Mitchell Robledo MD FACR Cholangiopancreatography MRI 05/24/17 0000 Signed Impressions: Service Date/Time: Wednesday, May 24, 2017 18:09 - CONCLUSION: 1. Cholelithiasis with some gallbladder wall thickening. 2. No intra-or extrahepatic biliary ductal dilatation. 3. Diffuse hepatic fatty infiltration. 4. Small to moderate hiatal hernia. Gonzales Reese MD Objective Remarks GENERAL: This is a well-nourished, well-developed patient, in no apparent distress. CARDIOVASCULAR: Normal rate and regular rhythm without murmurs, gallops, or rubs. RESPIRATORY: Good respiratory efforts. Breath sounds equal and clear to auscultation bilaterally. GASTROINTESTINAL: Abdomen soft, mild diffuse tenderness to palpation. Normal active bowel sounds MUSCULOSKELETAL: Extremities without cyanosis, or edema. NEURO: Alert & Oriented x4 to person, place, time, situation. Moves all ext x4 PSYCH: Appropriate mood and affect. A/P Problem List: (1) Abdominal pain ICD Code: R10.9 - Unspecified abdominal pain Status: Acute (2) Cholelithiasis ICD Code: K80.20 - Calculus of gallbladder without cholecystitis without obstruction Assessment and Plan 57-year-old male admitted with cholelithiasis and elevated LFT. Abdominal pain with cholelithiasis / elevated LFT's and history of chronic alcohol abuse - GI and general surgery following. Status post MRCP which is not reveal any acute obstruction but does have cholelithiasis. - Surgery planning for cholecystectomy tomorrow. Elevated LFTs: MRCP results as above. Likely patient passed a stone. - Continue to monitor. GI following. Alcohol abuse; watch for withdrawal- place on CIWA protocol. advised to stop drinking. -History of rheumatoid arthritis- f/u as outpatient. -DVT prophylaxis with SCD's- pending surgery Problem Qualifiers (1) Abdominal pain: Qualified Codes: R10.13 - Epigastric pain Shaun Keenan MD May 25, 2017 11:53
--- NOTE | 2017-05-25 12:52 | HHI.GIFU ---
Subjective Remarks Resting in bed. Wants to eat. States he is not having any abdominal pain at this time. No n/v. States plan is for surgery tomorrow (Angela Gilman) Objective Vitals I&O Vital Signs Date Time Temp Pulse Resp B/P (MAP) Pulse Ox O2 Delivery O2 Flow Rate FiO2 05/25/17 11:58 98.1 62 20 155/85 (108) 98 05/25/17 07:59 97.8 62 20 139/84 (102) 95 05/25/17 04:18 97.4 52 18 127/76 (93) 97 05/25/17 00:05 97.9 65 20 140/73 (95) 94 05/24/17 19:38 98.1 63 18 164/77 (106) 96 05/24/17 15:00 97.7 59 18 148/85 (106) 97 05/24/17 14:21 05/24/17 14:05 68 17 153/85 (107) 100 Room Air I/O 05/24/17 05/24/17 05/24/17 05/25/17 05/25/17 05/25/17 07:00 15:00 23:00 07:00 15:00 23:00 Intake Total 1000 ml 904 ml Balance 1000 ml 904 ml Intake IV Total 1000 ml 904 ml # Voids 2 # Bowel Movements 0 Laboratory Laboratory Tests Test 05/24/17 19:21 05/25/17 07:25 Prothrombin Time 12.7 Prothromb Time International Ratio 1.1 Hepatitis A IgM Antibody NEGATIVE Hepatitis B Surface Antigen NEGATIVE Hepatitis B Core IgM Antibody NEGATIVE Hepatitis C Antibody NEGATIVE Blood Urea Nitrogen 7 Creatinine 0.85 Random Glucose 93 Total Protein 7.3 Albumin 3.1 Calcium Level 7.9 Alkaline Phosphatase 105 Aspartate Amino Transf (AST/SGOT) 83 Alanine Aminotransferase (ALT/SGPT) 78 Total Bilirubin 3.0 Sodium Level 138 Potassium Level 3.6 Chloride Level 105 Carbon Dioxide Level 26.0 Anion Gap 7 Estimat Glomerular Filtration Rate 93 Imaging Last Impressions Abdomen/Pelvis CT 05/24/17 1009 Signed Impressions: Service Date/Time: Wednesday, May 24, 2017 10:59 - CONCLUSION: Negative for an acute process. Gallstones with mild gallbladder wall thickening Mitchell Robledo MD FACR Cholangiopancreatography MRI 05/24/17 0000 Signed Impressions: Service Date/Time: Wednesday, May 24, 2017 18:09 - CONCLUSION: 1. Cholelithiasis with some gallbladder wall thickening. 2. No intra-or extrahepatic biliary ductal dilatation. 3. Diffuse hepatic fatty infiltration. 4. Small to moderate hiatal hernia. Gonzales Reese MD Physical Exam HEENT: Normocephalic; atraumatic; no jaundice. CHEST: CTA CARDIAC: RRR ABDOMEN: Soft, protuberant, nondistended, nontender; no hepatosplenomegaly; bowel sounds are present in all four quadrants. EXTREMITIES: No clubbing, cyanosis, or edema. SKIN: Normal; no rash; no jaundice. DESIGN MAINTENANCE ENGINEER: No focal deficits; alert and oriented times three. (Angela Gilman) Assessment and Plan Plan ASSESSMENT: - Abdominal pain. CT Scan abdomen and pelvis (05/24/17)--> Negative for an acute process. Gallstones with mild gallbladder wall thickening. MRCP (05/24/17)---> Cholelithiasis with some gallbladder wall thickening, no intra-or extrahepatic biliary ductal dilatation, diffuse hepatic fatty infiltration. Small to moderate hiatal hernia. GS following, plan is for Lap. Cholecystectomy with liver biopsy tomorrow. States abdominal pain much improved today. - Elevated LFTs. MRCP did not appreciate obstruction. T> Bili 3.0, AST 83, ALT 78, Alk Phosph 105. Hepatitis profile pending. Plan is for liver biopsy at time of cholecystectomy PLAN - Low fat diet - NPO after MN - Await hepatitis profile - GS following, plan for lap. kayy with liver biopsy tomorrow - Supportive care - Further recommendations to follow based on results of above - This pt seen by myself and Dr Grijalva and this note is written on her behalf (Angela Gilman) Angela Gilman May 25, 2017 12:52 Magalys Grijalva MD May 25, 2017 18:01
--- NOTE | 2017-05-25 14:14 | HHI.PR ---
cc: Andrea Garnica MD Subjective Subjective Notes Resting in bed No issues Objective Vitals/I&O Vital Signs Date Time Temp Pulse Resp B/P (MAP) Pulse Ox O2 Delivery O2 Flow Rate FiO2 05/25/17 11:58 98.1 62 20 155/85 (108) 98 05/24/17 14:05 Room Air Labs Laboratory Tests Test 05/24/17 19:21 05/25/17 07:25 Prothrombin Time 12.7 Prothromb Time International Ratio 1.1 Hepatitis A IgM Antibody NEGATIVE Hepatitis B Surface Antigen NEGATIVE Hepatitis B Core IgM Antibody NEGATIVE Hepatitis C Antibody NEGATIVE Blood Urea Nitrogen 7 Creatinine 0.85 Random Glucose 93 Total Protein 7.3 Albumin 3.1 Calcium Level 7.9 Alkaline Phosphatase 105 Aspartate Amino Transf (AST/SGOT) 83 Alanine Aminotransferase (ALT/SGPT) 78 Total Bilirubin 3.0 Sodium Level 138 Potassium Level 3.6 Chloride Level 105 Carbon Dioxide Level 26.0 Anion Gap 7 Estimat Glomerular Filtration Rate 93 Cardiovascular: Regular Lungs: Clear Abdomen: Other (minimal RUQ pain with palpation ) Extremities: No edema A/P Assessment and Plan 57 year old male with cholelithiasis -MRCP shows no dilatation of the common bile duct -T-bili remains elevated; recheck in AM -Diet today; NPO after MN -Plan for OR tomorrow for lap kayy;liver bx tomorrow Attending Note - Dr. Garnica Patient seen and examined Abdominal pain much better Most of bilirubin elevation is due to indirect component; likely intracellular dz The exam, history, and the medical decision-making described in the above note were completed with the assistance of the mid-level provider. I reviewed and agree with the findings presented. I attest that I had a [id number] encounter with the patient on the same day, and personally performed and documented my assessment and findings in the medical record. Gaviota Carrizales May 25, 2017 14:14 Andrea Garnica MD May 26, 2017 10:11
[2017-05-25 14:54] LABS: INDIRECT BILIRUBIN 2.3 MG/DL (0.0-0.8)
[2017-05-26 04:29] VITALS: BP 154/89; PULSE 63; RESP 16; TEMP 97.6; O2SAT 95
[2017-05-26 07:50] LABS: TOTAL BILIRUBIN ADULT 2.7 MG/DL (0.2-1.0)
[2017-05-26 08:09] VITALS: BP 137/77; PULSE 62; RESP 20; TEMP 97.6; O2SAT 97
--- NOTE | 2017-05-26 12:44 | HHI.GIFU ---
Subjective Remarks Resting in bed. No complaints. States he is going for his surgery this afternoon. He drinks 10 beers per day typically. No abdominal pain, nausea, vomiting at this time. (Angela Gilman) Objective Vitals I&O Vital Signs Date Time Temp Pulse Resp B/P (MAP) Pulse Ox O2 Delivery O2 Flow Rate FiO2 05/26/17 08:09 97.6 62 20 137/77 (97) 97 05/26/17 04:29 97.6 63 16 154/89 (110) 95 05/25/17 23:45 98.4 67 16 143/80 (101) 96 05/25/17 20:02 98.1 84 18 159/87 (111) 97 05/25/17 20:01 98.1 84 18 159/87 (111) 97 05/25/17 16:02 98.1 67 20 127/70 (89) 95 I/O 05/25/17 05/25/17 05/25/17 05/26/17 05/26/17 05/26/17 07:00 15:00 23:00 07:00 15:00 23:00 Intake Total 904 ml 1522 ml Balance 904 ml 1522 ml Intake Oral 660 ml IV Total 904 ml 862 ml # Voids 2 3 3 # Bowel Movements 0 1 Laboratory Laboratory Tests Test 05/26/17 06:29 Total Bilirubin 2.7 Direct Bilirubin 0.7 Indirect Bilirubin 2.0 Aspartate Amino Transf (AST/SGOT) 109 Alanine Aminotransferase (ALT/SGPT) 95 Alkaline Phosphatase 102 Total Protein 7.6 Albumin 3.1 Imaging Last Impressions Abdomen/Pelvis CT 05/24/17 1009 Signed Impressions: Service Date/Time: Wednesday, May 24, 2017 10:59 - CONCLUSION: Negative for an acute process. Gallstones with mild gallbladder wall thickening Mitchell Robledo MD FACR Cholangiopancreatography MRI 05/24/17 0000 Signed Impressions: Service Date/Time: Wednesday, May 24, 2017 18:09 - CONCLUSION: 1. Cholelithiasis with some gallbladder wall thickening. 2. No intra-or extrahepatic biliary ductal dilatation. 3. Diffuse hepatic fatty infiltration. 4. Small to moderate hiatal hernia. Gonzales Reese MD Physical Exam HEENT: Normocephalic; atraumatic;+ jaundice. CHEST: CTA CARDIAC: RRR ABDOMEN: Soft, protuberant, nondistended, nontender; no hepatosplenomegaly; bowel sounds are present in all four quadrants. EXTREMITIES: No clubbing, cyanosis, or edema. SKIN: Normal; no rash; no jaundice. 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 (Angela Gilman) Assessment and Plan Plan ASSESSMENT: - Abdominal pain. CT Scan abdomen and pelvis (05/24/17)--> Negative for an acute process. Gallstones with mild gallbladder wall thickening. MRCP (05/24/17)---> Cholelithiasis with some gallbladder wall thickening, no intra-or extrahepatic biliary ductal dilatation, diffuse hepatic fatty infiltration. Small to moderate hiatal hernia. GS following, plan is for Lap. Cholecystectomy with possible IOC, liver biopsy today. Not currently in any pain. - Elevated LFTs. MRCP did not appreciate obstruction. LFTs elevated in pattern consistent with ETOH abuse. Does drink 10 beers per day. Suspect alcoholic hepatitis. Hepatitis profile negative. Liver biopsy at time of cholecystectomy - ETOH abuse. DT precautions per attending. PLAN - NPO for procedure - GS following, plan for lap. kayy with possible IOC, liver biopsy this afternoon - ETOH Cessation - FU KEVIN in 2 weeks - This pt seen by myself and Dr Grijalva and this note is written on her behalf (Angela Gilman) Angela Gilman May 26, 2017 12:44 Magalys Grijalva MD May 26, 2017 20:10
[2017-05-26] MEDS ORDERED: BUPIVACAINE/EPINEPHRINE 0.25% 50 ML VIAL ONE (13:19)
--- NOTE | 2017-05-26 14:21 | HHI.PR ---
Subjective Remarks Patient seen earlier this morning. He reports is feeling well. No abdominal pain. No nausea or vomiting. Scheduled for surgery this afternoon. Objective Vitals Vital Signs Date Time Temp Pulse Resp B/P (MAP) Pulse Ox O2 Delivery O2 Flow Rate FiO2 05/26/17 08:09 97.6 62 20 137/77 (97) 97 05/26/17 04:29 97.6 63 16 154/89 (110) 95 05/25/17 23:45 98.4 67 16 143/80 (101) 96 05/25/17 20:02 98.1 84 18 159/87 (111) 97 05/25/17 20:01 98.1 84 18 159/87 (111) 97 05/25/17 16:02 98.1 67 20 127/70 (89) 95 I/O 05/25/17 05/25/17 05/25/17 05/26/17 05/26/17 05/26/17 07:00 15:00 23:00 07:00 15:00 23:00 Intake Total 904 ml 1522 ml Balance 904 ml 1522 ml Intake Oral 660 ml IV Total 904 ml 862 ml # Voids 2 3 3 # Bowel Movements 0 1 Result Diagram: 05/24/17 0925 05/25/17 0725 Objective Remarks GENERAL: This is a well-nourished, well-developed patient, in no apparent distress. CARDIOVASCULAR: Normal rate and regular rhythm without murmurs, gallops, or rubs. RESPIRATORY: Good respiratory efforts. Breath sounds equal and clear to auscultation bilaterally. GASTROINTESTINAL: Abdomen soft, nondistended, nontender. Normal active bowel sounds MUSCULOSKELETAL: Extremities without cyanosis, or edema. NEURO: Alert & Oriented x4 to person, place, time, situation. Moves all ext x4 PSYCH: Appropriate mood and affect. A/P Problem List: (1) Abdominal pain ICD Code: R10.9 - Unspecified abdominal pain Status: Acute (2) Cholelithiasis ICD Code: K80.20 - Calculus of gallbladder without cholecystitis without obstruction Assessment and Plan 57-year-old male admitted with cholelithiasis and elevated LFT. Abdominal pain with cholelithiasis / elevated LFT's and history of chronic alcohol abuse - GI and general surgery following. Status post MRCP which is not reveal any acute obstruction but does have cholelithiasis. - Surgery planning for cholecystectomy later today. Elevated LFTs: MRCP results as above. Likely patient passed a stone. - Continue to monitor. GI following. Alcohol abuse; watch for withdrawal- place on CIWA protocol. advised to stop drinking. -History of rheumatoid arthritis- f/u as outpatient. -DVT prophylaxis with SCD's- pending surgery Problem Qualifiers (1) Abdominal pain: Qualified Codes: R10.13 - Epigastric pain Shaun Keenan MD May 26, 2017 14:21
[2017-05-26] MEDS ORDERED: VANCOMYCIN 500 MG VIAL ONE (14:34)
[2017-05-26] MEDS ORDERED: ceFAZolin INJ 1,000 MG VIAL ONE (14:34)
[2017-05-26] MEDS: SODIUM CHLOR 0.9% 1000 ML INJ 1,000 ML IV SCH (14:37)
[2017-05-26] MEDS ORDERED: IOHEXOL 350 MG/ML 50 ML BTL (for RAD DIAG) OTHER ONE (15:48)
[2017-05-26] MEDS ORDERED: NORC5TAB PO ×2 (16:39→16:59)
[2017-05-26] MEDS ORDERED: DO NOT ADM ANY ANTICOAGULANT DRUGS PRN (16:51)
[2017-05-26 17:20] VITALS: BP 135/84; PULSE 81; RESP 20; TEMP 97.4; O2SAT 94
--- NOTE | 2017-05-26 17:31 | MP ---
cc: SILVANO MARQUIS M.D. DATE OF SURGERY 05/26/2017 PROCEDURE 1. Laparoscopic cholecystectomy with intraoperative cholangiogram with intraoperative use of fluoroscopy. 2. Sudhir-Cut liver biopsy x3. 3. Primary umbilical hernia repair. PREOPERATIVE DIAGNOSIS Acute cholecystitis. POSTOPERATIVE DIAGNOSIS Acute cholecystitis. ANESTHESIA General endotracheal. SURGEON MD Nahun. ESTIMATED BLOOD LOSS 100 ml. FLUIDS 1500 ml crystalloid. EMPLOYMENT SPECIALIST Floresita Gutierrez CFA. COMPLICATIONS None. DRAINS None. SPECIMEN 1. Gallbladder to pathology. 2. Sudhir-Cut liver cores to pathology. FINDINGS 1. No evidence of common duct stones or filling defects. 2. No evidence of cirrhosis. PROCEDURE IN DETAIL The patient was taken to the operating room and placed on the operating table in the supine position. After an adequate level of general endotracheal anesthesia was achieved the abdomen was prepped and draped in usual fashion. Time-out was taken confirming the correct patient, site and procedures to be performed. Skin and subcutaneous tissue was infiltrated with local anesthetic and an incision made in the umbilical skin. Fatty tissue that comprised the hernia and was entirely preperitoneal fat was dissected free from the surrounding fascial defect. The preperitoneal fat was repositioned intraperitoneally and a 12 mm balloon trocar was inserted and the balloon inflated. The abdomen was insufflated. The patient was placed in reverse Trendelenburg position. Three 5 mm trocars were then placed with the first to the right of the falciform ligament and second and third in the right subcostal region. All entered the abdominal cavity under direct vision uneventfully. The fundus of the gallbladder was then grasped and retracted upward. Omental adhesions were taken down off of the thickened gallbladder. The stomach was decompressed with an orogastric tube and at this point the cystic duct infundibular junction and cystic artery were circumferentially dissected. There was also a second structure that appeared to be venous and was small. This was controlled with electrocautery. The cystic artery was doubly clipped proximally, singly clipped on the gallbladder side and divided. The cystic duct was a singly clipped on the gallbladder side and a cystic ductotomy was made. An Zaragoza cholangiocatheter was brought in via separate stab incision and placed into the cystic duct and secured with a single clip. Cholangiogram was obtained under real time fluoroscopy and this demonstrated good flow of contrast into the common bile duct and with flow into the duodenum. There was small backfilling into the pancreatic duct as well as good filling into the common hepatic duct and left and right hepatic ducts. No filling defects were noted. At this point, the cholangiocatheter was removed, the cystic duct doubly clipped distally and the cystic ductotomy used as the division point for the cystic duct. The gallbladder was then dissected off the liver bed with electro dissection. The gallbladder was placed into an EndoCatch device and while observing via the upper 5 mm trocar site, was removed via the umbilical port and passed off the table. The upper abdomen was revisualized. The liver bed, cystic artery stump and cystic duct stump were all seen to be clean and dry. At this point all irrigation was aspirated from the abdominal cavity. The medial segment of the left lobe of the liver was then biopsied by utilizing a Sudhir-Cut needle via separate stab incision; a total of three cores of tissue were taken. Each of the biopsy sites were made hemostatic with electrocautery. Once again irrigation was utilized to confirm complete hemostasis. All irrigation was aspirated. Insufflation was discontinued and the upper abdominal trocars removed under direct vision. No bleeding was noted from the trocar sites. The liver cores were submitted in formalin for specimen analysis immediately after taking the samples. At this point the laparoscope and umbilical port were then removed. The fascia was then closed in the umbilical site with #1 Prolene suture. This allowed for complete closure of the defect and a longitudinal fashion with simple interrupted Prolene sutures. When this had been completed, the remaining local anesthetic was injected into the trocar sites at the fascial level. All skin sites were then closed with 4-0 Vicryl in an interrupted buried fashion and the trocar sites then dressed with Steri-Strips including the cholangiocatheter site and Sudhir-Cut liver biopsy site. The patient was extubated and taken back to the recovery room in stable condition. He tolerated the procedure well. MD ANTHONY Mckoy/TREY /4:50 PM /5:10 PM
--- NOTE | 2017-05-27 17:40 | RADRPT ---
EXAM DATE/TIME: 05/26/2017 16:15 [facility] COMPARISON: No previous studies available for comparison. INDICATIONS : Pain- stones and hernia. FLUORO TIME: 1.35 minutes IMAGE COUNT: 1 MEDICAL HISTORY : Hiatal hernia. SURGICAL HISTORY : None. ENCOUNTER: Initial ACUITY: 1 day PAIN SCORE: Non-responsive. LOCATION: Abdomen. PROCEDURE: CHOLANGIOGRAM, OPERATIVE 1. Intraoperative cholangiogram. In the operating room, the cystic duct stump was injected and radiographs obtained. The examination demonstrates contrast throughout the common bile duct with opacification of the centr al intrahepatic ducts. No intraluminal filling defects are noted in the common bile duct. Contrast ex tends to the duodenum. CONCLUSION: No evidence of common duct stone. Panfilo Bolaños MD on May 27, 2017 at 17:37 Board Certified Radiologist. This report was verified electronically.
== END 2017-05-26 18:13 | disposition home or self-care (01) | DRG 419 ==
LOC: NEPD 08:57 → NEDA 12:06 → N05B 14:34
PROVIDERS: ADMIT Family Medicine; ATTEND Family Medicine
PROC: 0FB24ZX Excision of Left Lobe Liver, Percutaneous Endoscopic Approach, Diagnostic (ICD-10-PCS; 2017-05-26)
PROC: 0WQF0ZZ Repair Abdominal Wall, Open Approach (ICD-10-PCS; 2017-05-26)
PROC: BF101ZZ Fluoroscopy of Bile Ducts using Low Osmolar Contrast (ICD-10-PCS; 2017-05-26)
PROC: 0FT44ZZ Resection of Gallbladder, Percutaneous Endoscopic Approach (ICD-10-PCS; principal; 2017-05-26 15:00)
DX: K80.00 Calculus of gallbladder with acute cholecystitis without obstruction (principal); K42.9 Umbilical hernia without obstruction or gangrene; F10.10 Alcohol abuse, uncomplicated; M06.9 Rheumatoid arthritis, unspecified; R74.8 Abnormal levels of other serum enzymes; Z87.891 Personal history of nicotine dependence; Z23 Encounter for immunization
CPT/HCPCS: 74177; 74181; 74300; 76000; 76377; 80053; 80074; 80076; 81001; 82247; 82248; 83690; 85025; 85610; 88304; 88307; 90686; 90732; 93005; 96361; 96374; 96375; J1170; J0690; J2405; J3370; J7030; Q2038; Q9967

== ENCOUNTER 2017-08-31 08:52 | Observation (INO) | payer BC, OTHER ==
[~2017-08-31] VITALS: Ht 170.2 cm; Wt 100.0 kg
[2017-08-31] VITALS (7 sets, daily range): BP systolic 110–144; BP diastolic 66–83; PULSE 73–89; RESP 18–20; TEMP 98–99.3; O2SAT 93–100
[~2017-08-31 08:52] MED LIST: NORC5TAB PO
[2017-08-31] MEDS ORDERED: IOHEXOL 350 MG/ML 10 ML VIAL (for RAD DIAG) IVCONTRAST ONE (08:53)
[2017-08-31] MEDS ORDERED: PRED5TAB PO (09:22)
[2017-08-31 10:02] LABS: AUTOMATED NEUTROPHIL # 5.3 TH/MM3 (1.8-7.7); BASOPHIL % 0.1 % (0.0-2.0); EOSINOPHIL # 0.1 TH/MM3 (0-0.4); EOSINOPHIL % 0.6 % (0.0-4.0); HEMATOCRIT 32.9 % (39.0-51.0); HEMOGLOBIN 11.4 GM/DL (13.0-17.0); LYMPH % 11.5 % (9.0-44.0); LYMPHOCYTE # 1.1 TH/MM3 (1.0-4.8); MEAN CELL VOLUME 85.6 FL (80.0-100.0); MEAN CORPUSCULAR HEMOGLOBIN 29.6 PG (27.0-34.0); MEAN CORPUSCULAR HGB CONC 34.6 % (32.0-36.0); MONOCYTE # 2.9 TH/MM3 (0-0.9); NEUT % 56.8 % (16.0-70.0); PLATELET COUNT 194 TH/MM3 (150-450); RED BLOOD COUNT 3.85 MIL/MM3 (4.50-5.90); RED CELL DISTRIBUTION WIDTH 18.2 % (11.6-17.2); WHITE BLOOD COUNT 9.3 TH/MM3 (4.0-11.0)
--- NOTE | 2017-08-31 10:04 | RADRPT ---
EXAM DATE/TIME: 08/31/2017 09:51 [facility] COMPARISON: No previous studies available for comparison. INDICATIONS : Chest pain MEDICAL HISTORY : None. SURGICAL HISTORY : None. ENCOUNTER: Initial ACUITY: 2 days PAIN SCORE: 9/10 LOCATION: Bilateral chest FINDINGS: A single view of the chest demonstrates a focal infiltrate in the left lung base. Otherwise, the rest of lungs are grossly clear. There are no pleural effusions or pulmonary edema. No evidence of pneumo thorax. The heart size is upper limits of normal. The bony structures are grossly intact. There are s everal old healed left-sided rib fractures. No prior studies for comparison.. CONCLUSION: 1. Focal infiltrate in the left lung base. 2. Multiple old left-sided rib fractures. Brennan Lira MD on August 31, 2017 at 10:01 Board Certified Radiologist. This report was verified electronically.
[2017-08-31 10:11] LABS: BICARBONATE 22.4 MEQ/L (21.0-32.0); BLOOD UREA NITROGEN 16 MG/DL (7-18); CALCIUM 8.5 MG/DL (8.5-10.1); CHLORIDE 99 MEQ/L (98-107); CREATININE 1.21 MG/DL (0.60-1.30); GLOMERULAR FILTRATION RATE 62 ML/MIN (>89); GLUCOSE,RANDOM 104 MG/DL (74-106); SODIUM (NA) 132 MEQ/L (136-145)
[2017-08-31 10:15] LABS: TROPONIN I LESS THAN 0.02 NG/ML (0.02-0.05)
--- NOTE | 2017-08-31 10:38 | PD ---
HPI Chief Complaint: Chest Pain Time Seen by Provider: 09:54 Travel History International Travel<30 days: No Contact w/Intl Traveler<30days: No Traveled to known affect area: No History of Present Illness HPI Patient is a 57-year-old male presents emergency department with cough congestion chest discomfort for the past few days. Patient with recent travel to and from [place] by airplane, states he had a secondary house there. No fevers, no sputum production. His chest discomfort is fairly vague, seems more pleuritic, gradually worsening over the past few days associated with some mild shortness of breath and some cough. No history of weight loss. Symptoms are moderate, gradually worsening, context and associated signs symptoms as above per [facility] Past Medical History Arthritis: Yes (RHEUMATOID ARTHRITIS) Asthma: No Autoimmune Disease: No Anxiety: No Depression: No Heart Rhythm Problems: No Cancer: No Cardiovascular Problems: No High Cholesterol: No Chest Pain: No Congestive Heart Failure: No COPD: No Cerebrovascular Accident: No Diabetes: No Endocrine: No Gastrointestinal Disorders: Yes GERD: No Genitourinary: No Hiatal Hernia: No Immune Disorder: No Kidney Stones: No Musculoskeletal: Yes Neurologic: No Psychiatric: No Reproductive: No Respiratory: No Migraines: No Renal Failure: No Seizures: No Sickle Cell Disease: No Sleep Apnea: No Thyroid Disease: No Ulcer: No Tetanus Vaccination: < 5 Years Past Surgical History Abdominal Surgery: No AICD: No Arteriovenous Shunt: No Cardiac Surgery: No Cholecystectomy: Yes Ear Surgery: No Endocrine Surgery: No Eye Surgery: No Genitourinary Surgery: No Gynecologic Surgery: No Insulin Pump: No Joint Replacement: No Oral Surgery: No Pacemaker: No Thoracic Surgery: No Other Surgery: Yes Social History Alcohol Use: Yes (10 BEERS DAILY quit 1 week ago ) Tobacco Use: No Substance Use: No Allergies-Medications (Allergen,Severity, Reaction): Coded Allergies: lorazepam (Verified Adverse Reaction, Unknown, Irritability/Anxiety, ) STATES "IT MAKES ME GO CRAZY" Reported Meds & Prescriptions Reported Meds & Active Scripts Active Reported Prednisone 5 Mg Tab 5 Mg PO DAILY Review of Systems Except as stated in HPI: all other systems reviewed are Neg Physical Exam Narrative GENERAL: Well-developed well-nourished, appears comfortable exhibiting occasional dry cough SKIN: Focused skin assessment warm/dry. HEAD: Atraumatic. Normocephalic. EYES: Pupils equal and round. No scleral icterus. No injection or drainage. ENT: No nasal bleeding or discharge. Mucous membranes pink and moist. NECK: Trachea midline. No JVD. CARDIOVASCULAR: Regular rate and rhythm. No murmur appreciated. 2+ medical pulses in all 4 extremities. RESPIRATORY: No accessory muscle use. Clear to auscultation. Breath sounds equal bilaterally. GASTROINTESTINAL: Abdomen soft, non-tender, nondistended. Hepatic and splenic margins not palpable. MUSCULOSKELETAL: No obvious deformities. No clubbing. No cyanosis. No edema. NEUROLOGICAL: Awake and alert. No obvious cranial nerve deficits. Motor grossly within normal limits. Normal speech. PSYCHIATRIC: Appropriate mood and affect; insight and judgment normal. Data Data Last Documented VS Orders Orders Electrocardiogram (08/31/17 09:23) Complete Blood Count With Diff (08/31/17 09:23) Basic Metabolic Panel (Bmp) (08/31/17 09:23) Ckmb (Isoenzyme) Profile (08/31/17 09:23) Troponin I (08/31/17 09:23) Chest, Single Ap (08/31/17 09:23) Iv Access Insert/Monitor (08/31/17 09:23) Ct Pulmonary Angiogram (08/31/17 ) Iohexol 350 Inj (Omnipaque 350 Inj) (08/31/17 08:53) B-Type Natriuretic Peptide (08/31/17 11:16) Hepatic Functional Panel (08/31/17 11:18) Blood Culture (08/31/17 12:21) Ceftriaxone Inj (Rocephin Inj) (08/31/17 12:30) Azithromycin Inj (Zithromax Inj) (08/31/17 12:30) Admit Order (Ed Use Only) (08/31/17 ) Labs Laboratory Tests Test 08/31/17 09:30 White Blood Count 9.3 TH/MM3 Red Blood Count 3.85 MIL/MM3 Hemoglobin 11.4 GM/DL Hematocrit 32.9 % Mean Corpuscular Volume 85.6 FL Mean Corpuscular Hemoglobin 29.6 PG Mean Corpuscular Hemoglobin Concent 34.6 % Red Cell Distribution Width 18.2 % Platelet Count 194 TH/MM3 Mean Platelet Volume 7.0 FL Neutrophils (%) (Auto) 56.8 % Lymphocytes (%) (Auto) 11.5 % Monocytes (%) (Auto) 31.0 % Eosinophils (%) (Auto) 0.6 % Basophils (%) (Auto) 0.1 % Neutrophils # (Auto) 5.3 TH/MM3 Lymphocytes # (Auto) 1.1 TH/MM3 Monocytes # (Auto) 2.9 TH/MM3 Eosinophils # (Auto) 0.1 TH/MM3 Basophils # (Auto) 0.0 TH/MM3 CBC Comment AUTO DIFF Differential Comment AUTO DIFF CONFIRMED Blood Urea Nitrogen 16 MG/DL Creatinine 1.21 MG/DL Random Glucose 104 MG/DL Calcium Level 8.5 MG/DL Sodium Level 132 MEQ/L Potassium Level 4.1 MEQ/L Chloride Level 99 MEQ/L Carbon Dioxide Level 22.4 MEQ/L Anion Gap 11 MEQ/L Estimat Glomerular Filtration Rate 62 ML/MIN Total Bilirubin 3.9 MG/DL Direct Bilirubin 1.0 MG/DL Indirect Bilirubin 2.9 MG/DL Aspartate Amino Transf (AST/SGOT) 97 U/L Alanine Aminotransferase (ALT/SGPT) 179 U/L Alkaline Phosphatase 108 U/L Total Creatine Kinase 58 U/L Troponin I LESS THAN 0.02 NG/ML B-Type Natriuretic Peptide 29 PG/ML Total Protein 8.1 GM/DL Albumin 3.3 GM/DL [facility] Medical Decision Making Medical Screen Exam Complete: Yes Emergency Medical Condition: Yes Differential Diagnosis Pneumonia, PE, ACS seems unlikely per Narrative Course patient is 57 year old male presents to the er for evaluation of chest pain but more so cough and congestion amd sob. prequent plane trips to [place]. pe study shows pneumonia woth effusion. discussed with patient and residents the possibilities of effusion including infectious or malignancy. recommended for admission and he is agreeable. hemodynamically stable. Diagnosis Primary Impression: Pneumonia Qualified Codes: J18.1 - Lobar pneumonia, unspecified organism Additional Impression: Pleural effusion on left Admitting Information Admitting Physician Requests: Observation Scripts Clindamycin (Clindamycin) 300 Mg Cap 600 MG PO Q8H for Infection, #15 CAP 0 Refills Prov: Tico Burnham MD 09/02/17 Condition: Stable Nickolas Pinto MD Aug 31, 2017 10:38
--- NOTE | 2017-08-31 11:37 | RADRPT ---
EXAM DATE/TIME: 08/31/2017 10:39 [facility] COMPARISON: CT ABDOMEN & PELVIS W CONTRAST, May 24, 2017, 10:59. INDICATIONS : Chest pain that increases with inspiration, cough. IV CONTRAST: 71 cc Omnipaque 350 (iohexol) IV RADIATION DOSE: 10.60 CTDIvol (mGy) MEDICAL HISTORY : Gallbladder disease. SURGICAL HISTORY : None. ENCOUNTER: Initial ACUITY: 2 days PAIN SCALE: 5/10 LOCATION: Bilateral cranial TECHNIQUE: Volumetric scanning of the chest was performed using a pulmonary embolism protocol MIP images were re constructed. Using automated exposure control and adjustment of the mA and/or kV according to patien t size, radiation dose was kept as low as reasonably achievable to obtain optimal diagnostic quality images. DICOM format image data is available electronically for review and comparison. Follow-up recommendations for detected pulmonary nodules are based at a minimum on nodule size and pa tient risk factors according to Fleischner Society Guidelines. FINDINGS: PULMONARY ARTERIES: No filling defects are seen in the pulmonary arteries through the segmental level. LUNGS: Groundglass opacities in the left lower lobe, right lung base, inferior lingula and much more subtle groundglass opacities in the right upper lobe. PLEURAE: Trace left and small to moderate left pleural effusion. The pleural fluid appears slightly more dense than simple fluid. MEDIASTINUM: There is good visualization of the great vessels of the middle mediastinum. Coronary artery calcifica tions. Multiple small subcentimeter mediastinal nodes with the largest node measuring up to 1 cm in t he AP window. Several nodes are calcified. MUSCULOSKELETAL: Bilateral healed rib fractures. MISCELLANEOUS: Spleen is enlarged. CONCLUSION: 1. No CT evidence for pulmonary embolism through the segmental level. 2. Trace right and small to moderate slightly complex left pleural effusion with associated groundgla ss opacities is in the lower lobes presumably reflecting atelectasis. 3. Groundglass opacities in the lingula and more subtle ground glass opacities in the right upper lob e may reflect additional volume loss although inflammatory or infectious etiologies cannot be entirel y excluded. 4. Moderate coronary artery calcifications. 5. Splenomegaly. Panfilo Bolaños MD on August 31, 2017 at 10:53 Board Certified Radiologist. This report was verified electronically.
[2017-08-31 11:40] LABS: ALBUMIN 3.3 GM/DL (3.4-5.0)
[2017-08-31 11:42] LABS: INDIRECT BILIRUBIN 2.9 MG/DL (0.0-0.8); TOTAL BILIRUBIN ADULT 3.9 MG/DL (0.2-1.0); TOTAL PROTEIN 8.1 GM/DL (6.4-8.2)
[2017-08-31] MEDS ORDERED: AZITHROMYCIN INJ 500 MG in SODIUM CHLOR 0.9% 250 ML INJ 250 ML IV ONE (12:30)
[2017-08-31] MEDS ORDERED: cefTRIAXone INJ 1,000 MG in SODIUM CHLORIDE 0.9% INJ 100 ML IV ONE (12:30)
--- NOTE | 2017-08-31 13:06 | HHI.HP ---
[facility] Service Family Medicine Primary Care Physician [facility] Admission Diagnosis Pneumonia with plueral effusion. Diagnoses: International Travel<30 Days: No Contact w/Intl Traveler<30days: No Known Affected Area: No History of Present Illness Patient is a 57-year-old male with past medical history rheumatoid arthritis who presents to the ED with complaints of pleuritic chest pain and malaise that started 2 days ago. Patient stated that 2 days ago he developed multitude of symptoms including: Pleuritic chest pain (rates 9/10, radiating straight to his back), night sweats, shortness of breath, nausea, subjective fevers, cough productive of white sputum and blurred vision. Patient reports that symptoms came on all of a sudden. Denies ever having anything like this happen in the past. Patient denies any sick contacts. Of note: patient drove down from [place] on Monday. CTA done in the ED showed: No evidence of pulmonary embolism, complex left pleural effusion associated with ground glass opacity in the lower lobes presumably reflecting atelectasis. Inflammatory or infectious etiologies cannot be entirely excluded. Splenomegaly. Patient was started on Rocephin for suspected pna. (Cristal Sultana MD, R1) Review of Systems Constitutional: COMPLAINS OF: Fatigue, Fever (2 days ago, sujective), Night Sweats (2 days ago), DENIES: Weight loss, Chills, Change in appetite Eyes: COMPLAINS OF: Blurred vision Ears, nose, mouth, throat: DENIES: Vertigo, Nasal discharge, Sinus Pain Respiratory: COMPLAINS OF: Cough, Sputum production (white ), DENIES: Shortness of breath Cardiovascular: COMPLAINS OF: Chest pain (pleuritic chest pain), DENIES: Palpitations, Lower Extremity Edema Gastrointestinal: COMPLAINS OF: Nausea, DENIES: Abdominal pain, Diarrhea, Vomiting Genitourinary: DENIES: Urinary frequency, Dysuria Musculoskeletal: DENIES: Joint pain, Muscle aches Integumentary: DENIES: Rash Hematologic/lymphatic: DENIES: Bruising Neurologic: COMPLAINS OF: Headache, DENIES: Paresthesias Psychiatric: COMPLAINS OF: Confusion (first day of sxs, now resolved) (Cristal Sultana MD, R1) Past Family Social History Past Medical History RA, 14 yr hx. Past Surgical History Cholecystectomy Reported Medications Reported Meds & Active Scripts Active Reported Prednisone 5 Mg Tab 5 Mg PO DAILY, Naproxen QD (Cristal Sultana MD, R1) Allergies: Coded Allergies: lorazepam (Verified Adverse Reaction, Unknown, Irritability/Anxiety, ) STATES "IT MAKES ME GO CRAZY" Family History Father of heart attack at age 71 Mother at age 70 Social History Patient recently moved to [place], drove down from [place] on Monday with . Smoking- quit 17 yrs ago, prior use: 2 packs per day for 30 yrs Alcohol- beer, occasionally, last drink 1 wk ago Illicit drug: none (Cristal Sultana MD, R1) Physical Exam Vital Signs Vital Signs Date Time Temp Pulse Resp B/P (MAP) Pulse Ox O2 Delivery O2 Flow Rate FiO2 08/31/17 10:10 83 18 114/83 (93) 84 18 116/77 (90) 08/31/17 10:05 79 18 110/66 (81) 96 Nasal Cannula 2.00 08/31/17 09:16 98.4 88 18 124/67 (86) 100 Physical Exam GENERAL: This is a well-nourished, well-developed patient, laying bed in no apparent distress. SKIN: No rashes, ecchymoses or lesions. Cool and dry. Jaundice. HEAD: Atraumatic. Normocephalic. No temporal or scalp tenderness. EYES: Pupils equal round and reactive. Extraocular motions intact. mild scleral icterus. No injection or drainage. ENT: Nose without bleeding, purulent drainage or septal hematoma. Throat without erythema, tonsillar hypertrophy or exudate. Uvula midline. Airway patent. NECK: Trachea midline. No JVD or lymphadenopathy. Supple, nontender, no meningeal signs. CARDIOVASCULAR: Normal S1 and S2. Regular rate and rhythm without murmurs, gallops, or rubs. RESPIRATORY: Rales noted on lower bases more pronounced on Left lower base. No wheezes, or rhonchi. GASTROINTESTINAL: Abdomen soft, non-tender, nondistended. No hepato-splenomegaly , or palpable masses. No guarding. MUSCULOSKELETAL: Extremities without clubbing, cyanosis, or edema. No joint tenderness, effusion, or edema noted. No calf tenderness. Negative Homans sign bilaterally. +2 DP pulses BL. NEUROLOGICAL: Awake and alert. Cranial nerves II through XII intact. Motor and sensory grossly within normal limits. Five out of 5 muscle strength in all muscle groups. Normal speech. Laboratory Laboratory Tests Test 08/31/17 09:30 White Blood Count 9.3 Red Blood Count 3.85 Hemoglobin 11.4 Hematocrit 32.9 Mean Corpuscular Volume 85.6 Mean Corpuscular Hemoglobin 29.6 Mean Corpuscular Hemoglobin Concent 34.6 Red Cell Distribution Width 18.2 Platelet Count 194 Mean Platelet Volume 7.0 Neutrophils (%) (Auto) 56.8 Lymphocytes (%) (Auto) 11.5 Monocytes (%) (Auto) 31.0 Eosinophils (%) (Auto) 0.6 Basophils (%) (Auto) 0.1 Neutrophils # (Auto) 5.3 Lymphocytes # (Auto) 1.1 Monocytes # (Auto) 2.9 Eosinophils # (Auto) 0.1 Basophils # (Auto) 0.0 CBC Comment AUTO DIFF Differential Comment AUTO DIFF CONFIRMED Blood Urea Nitrogen 16 Creatinine 1.21 Random Glucose 104 Calcium Level 8.5 Sodium Level 132 Potassium Level 4.1 Chloride Level 99 Carbon Dioxide Level 22.4 Anion Gap 11 Estimat Glomerular Filtration Rate 62 Total Bilirubin 3.9 Direct Bilirubin 1.0 Indirect Bilirubin 2.9 Aspartate Amino Transf (AST/SGOT) 97 Alanine Aminotransferase (ALT/SGPT) 179 Alkaline Phosphatase 108 Total Creatine Kinase 58 Troponin I LESS THAN 0.02 B-Type Natriuretic Peptide 29 Total Protein 8.1 Albumin 3.3 Date/Time Source Procedure Growth Status 08/31/17 12:32 Blood Peripheral Aerobic Blood Culture Pending Received 08/31/17 12:32 Blood Peripheral Anaerobic Blood Culture Pending Received (Cristal Sultana MD, R1) Result Diagram: 08/31/1792908/31/17929 Imaging Last Impressions Chest X-Ray 08/31/17922 Signed Impressions: Service Date/Time: August 09:51 - CONCLUSION: 1. Focal infiltrate in the left lung base. 2. Multiple old left-sided rib fractures. Brennan Lira MD CT Angiography 08/31/17 0000 Signed Impressions: Service Date/Time: August 10:39 - CONCLUSION: 1. No CT evidence for pulmonary embolism through the segmental level. 2. Trace right and small to moderate slightly complex left pleural effusion with associated groundglass opacities is in the lower lobes presumably reflecting atelectasis. 3. Groundglass opacities in the lingula and more subtle ground glass opacities in the right upper lobe may reflect additional volume loss although inflammatory or infectious etiologies cannot be entirely excluded. 4. Moderate coronary artery calcifications. 5. Splenomegaly. Panfilo Bolaños MD (Cristal Sultana MD, R1) Caprini VTE Risk Assessment Caprini VTE Risk Assessment: Mod/High Risk (score >= 2) VTE Pharm Contraindication: Caprini Risk Assessment Model Point Value = 1 Point Value = 2 Point Value = 3 Point Value = 5 Age 41-60 Minor surgery BMI > 25 kg/m2 Swollen legs Varicose veins or History of unexplained or recurrent spontaneous Oral contraceptives or hormone replacement Sepsis (< 1 month) Serious lung disease, including pneumonia (< 1 month) Abnormal pulmonary function Acute myocardial infarction Congestive heart failure (< 1 month) History of inflammatory bowel disease Medical patient at bed rest Age 61-74 Arthroscopic surgery Major open surgery (> 45 min) Laparoscopic surgery (> 45 min) Malignancy Confined to bed (> 72 hours) Immobilizing plaster cast Central venous access Age >= 75 History of VTE Family history of VTE Factor V Leiden Prothrombin [id number] Lupus anticoagulant Anticardiolipin antibodies Elevated serum homocysteine Heparin-induced thrombocytopenia Other congenital or acquired thrombophilia Stroke (< 1 month) Elective arthroplasty Hip, pelvis, or leg fracture Acute spinal cord injury (< 1 month) Prophylaxis Regimen Total Risk Factor Score Risk Level Prophylaxis Regimen 0-1 Low Early ambulation 2 Moderate Order ONE of the following: *Sequential Compression Device (SCD) *Heparin 5000 units SQ BID 3-4 Higher Order ONE of the following medications: *Heparin 5000 units SQ TID *Enoxaparin/Lovenox 40 mg SQ daily (WT < 150 kg, CrCl > 30 mL/min) *Enoxaparin/Lovenox 30 mg SQ daily (WT < 150 kg, CrCl > 10-29 mL/min) *Enoxaparin/Lovenox 30 mg SQ BID (WT < 150 kg, CrCl > 30 mL/min) AND/OR *Sequential Compression Device (SCD) 5 or more Highest Order ONE of the following medications: *Heparin 5000 units SQ TID (Preferred with Epidurals) *Enoxaparin/Lovenox 40 mg SQ daily (WT < 150 kg, CrCl > 30 mL/min) *Enoxaparin/Lovenox 30 mg SQ daily (WT < 150 kg, CrCl > 10-29 mL/min) *Enoxaparin/Lovenox 30 mg SQ BID (WT < 150 kg, CrCl > 30 mL/min) AND *Sequential Compression Device (SCD) (Cristal Sultana MD, R1) Assessment and Plan Assessment and Plan Patient is a 57-year-old male with past medical history rheumatoid arthritis who presents to the ED with complaints of pleuritic chest pain and malaise that started 2 days ago. Patient found to have left sided pleural effusion on CTA. Admitted for further w/u and treatment of pna. Code Status DNR Discussed Condition With SDW Dr. Salazar and Dr. Burnham (Cristal Sultana MD, R1) Attending Attestation Pt. seen, examined and discussed with the medicine team. I agree with the documented history, exam findings and plan. (Gwendolyn Salazar MD) Problem List: (1) Chest pain ICD Codes: R07.9 - Chest pain, unspecified Status: Acute Plan: Patient with c/o of 2 day hx of pleuritic chest pain. Patient is afebrile, vital signs within normal limits, no leukocytosis. Differential diagnosis include: Pneumonia, PE, malignancy, interstitial lung disease due to RA Troponin x 1 negative EKG: sinus rhythm CXR: Focal infiltrate in the Left lung base. Multiple old left sided rib fx. CTA done in the ED showed: No evidence of pulmonary embolism, complex left pleural effusion associated with ground glass opacity in the lower lobes presumably reflecting atelectasis. Inflammatory or infectious etiologies cannot be entirely excluded. Splenomegaly. IR consulted for possible drainage of left pleural effusion -f/u pleural fluid studies, blood cx Patient started on rocephin and azithromycin for suspected pna titrate oxygen as needed (2) Pleural effusion on left ICD Codes: J90 - Pleural effusion, not elsewhere classified Status: Acute Plan: IR consulted for possible drainage of left pleural effusion see plan above (3) Rheumatoid arthritis ICD Codes: M06.9 - Rheumatoid arthritis, unspecified Status: Chronic Plan: Continue with prednisone 5mg and naproxen QD (4) Transaminitis ICD Codes: R74.0 - Nonspecific elevation of levels of transaminase and lactic acid dehydrogenase [LDH] Plan: Pt with elevated liver enzymes. Skin noted to be jaundice on exam, scleral icterus also noted. Normal abdominal exam. AST: 97 ALT: 179 Total bilirubin: 3.9 Direct bili: 1 Indirect bili: 2.9 f/u liver u/s continue to monitor (5) Nutrition, metabolism, and development symptoms ICD Codes: R63.8 - Other symptoms and signs concerning food and fluid intake Plan: Fluids: will hold off at this time Electrolytes: replete as needed, will continue to monitor Nutrition: NPO pending pleural effusion DVT ppx: SCDs (Cristal Sultana MD, R1) Cristal Sultana MD, R1 Aug 31, 2017 13:06 Gwendolyn Salazar MD Aug 31, 2017 17:51
--- NOTE | 2017-08-31 13:41 | EKG ---
Date Performed: 08/31/2017 Time Performed: 09:00:34 PTAGE: 57 years EKG: Sinus rhythm BORDERLINE LEFT AXIS DEVIATION NONSPECIFIC T-WAVE ABNORMALITY BORDERLINE ECG NO PREVIOUS TRACING DOCTOR: Louis Ruiz Interpretating Date/Time 08/31/2017 13:39:48
[2017-08-31] MEDS ORDERED: BISACODYL 10 MG SUPP RECTAL PRN (13:45)
[2017-08-31] MEDS ORDERED: SENNOSIDES 8.6 MG TAB PO PRN (13:45)
[2017-08-31] MEDS ORDERED: SODIUM CHLORIDE 0.9% FLUSH 10 ML FLUSH IV FLUSH PRN (13:45)
[2017-08-31] MEDS ORDERED: ACETAMINOPHEN 325 MG TAB PO PRN (13:45)
[2017-08-31] MEDS ORDERED: LACTULOSE SYRUP 20 GM/30 ML CUP PO PRN (13:45)
[2017-08-31] MEDS ORDERED: NALOXONE HCL 0.4 MG/ML AMP IV PUSH PRN (13:45)
[2017-08-31] MEDS ORDERED: ONDANSETRON HCL 4 MG/2 ML VIAL IVP PRN (13:45)
[2017-08-31] MEDS ORDERED: MAGNESIUM HYDROXIDE SUSP 30 ML CUP PO PRN (13:45)
[2017-08-31] MEDS ORDERED: RESP: ALBUTEROL 2.5 MG/IPRATROPIUM 0.5 MG NEB (PRN) INH (14:00)
[2017-08-31 14:22] LABS: INTERNATIONAL NORMALIZED RATIO 1.2 RATIO; PROTHROMBIN TIME - PATIENT 11.8 SEC (9.8-11.6)
[2017-08-31] MEDS ORDERED: LIDOCAINE HCL 1% 20 ML VIAL ONE (15:14)
--- NOTE | 2017-08-31 16:08 | RADRPT ---
EXAM DATE/TIME: 08/31/2017 15:51 [facility] COMPARISON: CHEST SINGLE AP, August 31, 2017, 9:51. INDICATIONS : Status post thoracentesis. MEDICAL HISTORY : Gallbladder disease. SURGICAL HISTORY : None. ENCOUNTER: Initial ACUITY: 1 day PAIN SCORE: 0/10 LOCATION: Bilateral chest FINDINGS: Status post left thoracentesis. No evidence of pneumothorax. Patchy infiltrates in the lung bases, le ft greater than right. Heart size is stable. CONCLUSION: Status post left thoracentesis. No evidence of pneumothorax. Brennan Lira MD on August 31, 2017 at 16:06 Board Certified Radiologist. This report was verified electronically.
--- NOTE | 2017-08-31 16:16 | RADRPT ---
EXAM DATE/TIME: 08/31/2017 14:13 [facility] COMPARISON: No previous studies available for comparison. INDICATIONS : Left pleural effusion. MEDICAL HISTORY : Chest pain. SURGICAL HISTORY : Cholecystectomy ENCOUNTER: Initial ACUITY: 3 days PAIN SCORE: 3/10 LOCATION: Left chest FLUID: Total volume of 450 cc of clear, yellow fluid was removed. Fluid was sent to lab for ordered studies. TECHNIQUE: 1. Ultrasound guidance for thoracentesis. 2. Thoracentesis. The risks, benefits, and alternatives to ultrasound guided thoracentesis were explained to the patien t in lay simple terms, including the risk of bleeding and infection. Written and verbal informed con sent was obtained. Appropriate area for thoracentesis was marked under ultrasound guidance with the patient in the uprig ht position. Overlying skin was prepped and draped in the usual sterile fashion and with local anest hetic, a dermatotomy was made with an 11 blade scalpel. A 6 Kiswahili thoracentesis catheter was placed in the pleural space and fluid was removed. Catheter was then removed and a sterile dressing applie d. There were no immediate complications. The patient tolerated the procedure well and the left the ultrasound suite in stable condition. Chest radiograph is to be obtained. CONCLUSION: Uncomplicated ultrasound guided thoracentesis. Gonzales Reese MD on August 31, 2017 at 16:14 Board Certified Radiologist. This report was verified electronically.
[2017-08-31 19:04] LABS: TOTAL PROTEIN,PLEURAL FLUID 6.3 GM/DL
[2017-08-31 19:14] LABS: PLEURAL FLUID RBC 233 /MM3 (0-0); PLEURAL FLUID WBC 8163 /MM3 (0-10)
[2017-08-31 19:15] LABS: PLEURAL FLUID EOS 4 %; PLEURAL FLUID HISTIOCYTES 4 %; PLEURAL FLUID LYMPHS 4 %; PLEURAL FLUID POLYS (SEGS) 88 %
--- NOTE | 2017-08-31 19:31 | RADRPT ---
EXAM DATE/TIME: 08/31/2017 18:26 [facility] COMPARISON: No previous studies available for comparison. INDICATIONS : Jaundice. MEDICAL HISTORY : Rheumatoid arthritis. SURGICAL HISTORY : Cholecystectomy. Bilateral wrist surgery. Left hip surgery. Thoracentesis. ENCOUNTER: Initial ACUITY: 1 day PAIN SCORE: 0/10 LOCATION: Abdomen. MEASUREMENTS: LIVER: 16.4 cm length COMMON DUCT: 5 mm RIGHT KIDNEY: 11.8 x 6.9 x 6.2 cm SPLEEN: 15.9 cm length FINDINGS: LIVER: Homogeneous echotexture within the visualized portion of the right lobe. No intrahepatic biliary joaquin aliyah dilatation. Hepatopedal flow is seen in the portal vein. The left lobe it is not well imaged. COMMON DUCT: No intraluminal mass or stone visualized. GALLBLADDER: Cholecystectomy PANCREAS: Not well seen. RIGHT KIDNEY: No hydronephrosis, stone or mass. SPLEEN: No focal lesion. CONCLUSION: No evidence of biliary ductal dilatation. The left lobe of the liver is not well-seen. Teddy Joe MD on August 31, 2017 at 19:28 Board Certified Radiologist. This report was verified electronically.
[2017-08-31] MEDS: NAPROXEN 375 MG TAB PO SCH (21:43)
[2017-08-31] MEDS: DOCUSATE SODIUM 50 MG/SENNA 8.6 MG TAB PO SCH (21:43)
[2017-08-31] MEDS: SODIUM CHLORIDE 0.9% FLUSH 10 ML FLUSH IV FLUSH SCH (21:43)
[2017-09-01] VITALS (7 sets, daily range): BP systolic 128–147; BP diastolic 60–85; PULSE 78–92; RESP 18–20; TEMP 97.9–99.5; O2SAT 90–98
[2017-09-01 08:17] LABS: AUTOMATED NEUTROPHIL # 4.6 TH/MM3 (1.8-7.7); BASOPHIL % 0.2 % (0.0-2.0); EOSINOPHIL # 0.1 TH/MM3 (0-0.4); EOSINOPHIL % 1.2 % (0.0-4.0); HEMATOCRIT 33.1 % (39.0-51.0); HEMOGLOBIN 11.4 GM/DL (13.0-17.0); LYMPH % 14.3 % (9.0-44.0); LYMPHOCYTE # 1.2 TH/MM3 (1.0-4.8); MEAN CELL VOLUME 85.7 FL (80.0-100.0); MEAN CORPUSCULAR HEMOGLOBIN 29.5 PG (27.0-34.0); MEAN CORPUSCULAR HGB CONC 34.5 % (32.0-36.0); MEAN PLATELET VOLUME 7.2 FL (7.0-11.0); MONO % 28.5 % (0.0-8.0); MONOCYTE # 2.4 TH/MM3 (0-0.9); NEUT % 55.8 % (16.0-70.0); PLATELET COUNT 190 TH/MM3 (150-450); RED BLOOD COUNT 3.86 MIL/MM3 (4.50-5.90); RED CELL DISTRIBUTION WIDTH 18.1 % (11.6-17.2); WHITE BLOOD COUNT 8.3 TH/MM3 (4.0-11.0)
[2017-09-01 08:45] LABS: BICARBONATE 25.2 MEQ/L (21.0-32.0); CALCIUM 8.6 MG/DL (8.5-10.1); CREATININE 1.07 MG/DL (0.60-1.30)
[2017-09-01 08:53] LABS: BANDS 7 % (0-6); LYMPHOCYTES 13 % (9-44); METAMYELOCYTES 2 % (0-1); MONOCYTES 28 % (0-8); NEUTROPHIL # MANUAL DIFF 4.7 TH/MM3 (1.8-7.7); PLASMA CELLS 1 % (0-0); POLYS (SEG NEUTROPHILS) 48 % (16-70)
[2017-09-01] MEDS: DOCUSATE SODIUM 50 MG/SENNA 8.6 MG TAB PO SCH ×2 (09:00→23:59)
[2017-09-01] MEDS: NAPROXEN 375 MG TAB PO SCH ×2 (09:04→23:59)
[2017-09-01] MEDS: predniSONE 5 MG TAB PO SCH (09:04)
[2017-09-01] MEDS: SODIUM CHLORIDE 0.9% FLUSH 10 ML FLUSH IV FLUSH SCH ×2 (09:05→21:00)
[2017-09-01] MEDS ORDERED: cefTRIAXone INJ 1,000 MG in SODIUM CHLORIDE 0.9% INJ 100 ML IV SCH (12:00)
[2017-09-01] MEDS ORDERED: AZITHROMYCIN 250 MG TAB PO SCH (12:00)
--- NOTE | 2017-09-01 12:36 | HHI.FPPN ---
Subjective Remarks Patient seen and examined at bedside. No acute events overnight. Patient stated he is doing well, endorses resolution of shortness of breath chest pain and or other symptoms he had initially presented with. No other complaints. (Cristal Sultana MD, R1) Objective Vitals Vital Signs Date Time Temp Pulse Resp B/P (MAP) Pulse Ox O2 Delivery O2 Flow Rate FiO2 09/01/17 08:25 98.2 92 20 130/75 (93) 96 09/01/17 05:21 98.1 78 18 147/82 (103) 96 09/01/17 00:36 98.0 84 18 146/85 (105) 90 08/31/17 21:23 98.0 73 18 144/81 (102) 97 08/31/17 20:05 94 08/31/17 16:00 99.3 89 20 118/75 (89) 93 08/31/17 14:00 83 18 123/75 (91) 98 Room Air I/O 08/31/17 08/31/17 08/31/17 09/01/17 09/01/17 09/01/17 07:00 15:00 23:00 07:00 15:00 23:00 # Voids 2 (Cristal Sultana MD, R1) Result Diagram: 09/01/17 0654 09/01/17 0654 Imaging Last Impressions Chest X-Ray 08/31/17 0923 Signed Impressions: Service Date/Time: August 09:51 - CONCLUSION: 1. Focal infiltrate in the left lung base. 2. Multiple old left-sided rib fractures. Brennan Lira MD Thoracentesis Ultrasound 08/31/17 0000 Signed Impressions: Service Date/Time: August 14:13 - CONCLUSION: Uncomplicated ultrasound guided thoracentesis. Gonzales Reese MD Liver Ultrasound 08/31/17 0000 Signed Impressions: Service Date/Time: August 18:26 - CONCLUSION: No evidence of biliary ductal dilatation. The left lobe of the liver is not well-seen. Teddy Joe MD CT Angiography 08/31/17 0000 Signed Impressions: Service Date/Time: August 10:39 - CONCLUSION: 1. No CT evidence for pulmonary embolism through the segmental level. 2. Trace right and small to moderate slightly complex left pleural effusion with associated groundglass opacities is in the lower lobes presumably reflecting atelectasis. 3. Groundglass opacities in the lingula and more subtle ground glass opacities in the right upper lobe may reflect additional volume loss although inflammatory or infectious etiologies cannot be entirely excluded. 4. Moderate coronary artery calcifications. 5. Splenomegaly. Panfilo Bolaños MD Objective Remarks GENERAL: This is a well-nourished, well-developed patient, sitting up in bed. SKIN: No rashes, ecchymoses or lesions. Cool and dry. Jaundice. Bandage noted on Left side of back over thoracentesis entry site. HEAD: Atraumatic. Normocephalic. EYES: Pupils equal round and reactive. Extraocular motions intact. mild scleral icterus. No injection or drainage. ENT: Nose without bleeding, purulent drainage or septal hematoma. NECK: Trachea midline. No JVD or lymphadenopathy. Supple, nontender, no meningeal signs. CARDIOVASCULAR: Normal S1 and S2. Regular rate and rhythm without murmurs, gallops, or rubs. RESPIRATORY: mild rales noted on lower bases more pronounced on Left lower base , improved from yesterday. No wheezes, or rhonchi. GASTROINTESTINAL: Abdomen soft, non-tender, nondistended. No hepato-splenomegaly , or palpable masses. No guarding. MUSCULOSKELETAL: Extremities without clubbing, cyanosis, or edema. No joint tenderness, effusion, or edema noted. No calf tenderness. Negative Homans sign bilaterally. +2 DP pulses BL. NEUROLOGICAL: Awake and alert. Cranial nerves II through XII intact. Motor and sensory grossly within normal limits. Five out of 5 muscle strength in all muscle groups. Normal speech. (Cristal Sultana MD, R1) A/P Assessment and Plan Patient is a 57-year-old male with past medical history rheumatoid arthritis who presents to the ED with complaints of pleuritic chest pain and malaise that started 2 days ago. Patient found to have left sided pleural effusion on CTA. Admitted for further w/u and treatment of pna. (Cristal Sultana MD, R1) Attending Attestation Pt. seen and examined with the medicine team. is with him. He is sitting at bedside, smiling. No chest pain, much less SOB. Walked around without difficulty. Good appetite. Had thoracentesis of 450 ml of fluid which appears to be exudative. Basilar lung sounds improved. Exam is as noted above; I agree. Case reviewed and discussed with the resident team. Agree with plan of care as discussed with me and documented in the resident note. (Gwendolyn Salazar MD) Problem List: (1) Chest pain ICD Codes: R07.9 - Chest pain, unspecified Status: Resolved Plan: Patient with c/o of 2 day hx of pleuritic chest pain. Patient is afebrile, vital signs within normal limits, no leukocytosis. Differential diagnosis include: Pneumonia, PE, malignancy, interstitial lung disease due to RA Today symptoms have resolved, patient stated he is feeling well. Troponin x 1 negative EKG: sinus rhythm CXR: Focal infiltrate in the Left lung base. Multiple old left sided rib fx. CTA done in the ED showed: No evidence of pulmonary embolism, complex left pleural effusion associated with ground glass opacity in the lower lobes presumably reflecting atelectasis. Inflammatory or infectious etiologies cannot be entirely excluded. Splenomegaly. IR consulted for possible drainage of left pleural effusion, s/p thoracentesis -pleural fluid studies: WBC- 8163, RBC-233 -blood cx no growth x1 day -c/w started on rocephin and azithromycin for suspected pna -sputum cx: positive for staphylococcus aureus, f/u susceptibility -will adjust antibiotics as needed -neg for influenza A&B titrate oxygen as needed (2) Pleural effusion on left ICD Codes: J90 - Pleural effusion, not elsewhere classified Status: Acute Plan: IR consulted for possible drainage of left pleural effusion s/p thoracentesis 08/31 see plan above (3) Rheumatoid arthritis ICD Codes: M06.9 - Rheumatoid arthritis, unspecified Status: Chronic Plan: Continue with prednisone 5mg and naproxen QD (4) Transaminitis ICD Codes: R74.0 - Nonspecific elevation of levels of transaminase and lactic acid dehydrogenase [LDH] Plan: Pt with elevated liver enzymes. Skin noted to be jaundice on exam, scleral icterus also noted. Normal abdominal exam. AST: 97 ALT: 179 Total bilirubin: 3.9 Direct bili: 1 Indirect bili: 2.9 liver u/s: No evidence of biliary ductal dilation. continue to monitor (5) Nutrition, metabolism, and development symptoms ICD Codes: R63.8 - Other symptoms and signs concerning food and fluid intake Plan: Fluids: will hold off at this time Electrolytes: replete as needed, will continue to monitor Nutrition: Regular diet DVT ppx: SCDs, early ambulation (Cristal Sultana MD, R1) Cristal Sultana MD, R1 Sep 01, 2017 12:36 Gwendolyn Salazar MD Sep 01, 2017 13:36
[2017-09-02 00:05] VITALS: BP 122/76; PULSE 82; RESP 18; TEMP 98.8; O2SAT 93
[2017-09-02 02:58] VITALS: BP 121/79; PULSE 85; RESP 18; TEMP 98.1; O2SAT 93
[2017-09-02 05:08] LABS: AUTOMATED NEUTROPHIL # 4.2 TH/MM3 (1.8-7.7); BASOPHIL % 0.5 % (0.0-2.0); EOSINOPHIL # 0.1 TH/MM3 (0-0.4); EOSINOPHIL % 1.4 % (0.0-4.0); HEMATOCRIT 30.2 % (39.0-51.0); HEMOGLOBIN 10.5 GM/DL (13.0-17.0); LYMPH % 21.4 % (9.0-44.0); LYMPHOCYTE # 1.7 TH/MM3 (1.0-4.8); MEAN CELL VOLUME 84.7 FL (80.0-100.0); MEAN CORPUSCULAR HEMOGLOBIN 29.4 PG (27.0-34.0); MEAN CORPUSCULAR HGB CONC 34.8 % (32.0-36.0); MEAN PLATELET VOLUME 7.2 FL (7.0-11.0); MONO % 23.7 % (0.0-8.0); MONOCYTE # 1.9 TH/MM3 (0-0.9); PLATELET COUNT 196 TH/MM3 (150-450); RED BLOOD COUNT 3.57 MIL/MM3 (4.50-5.90); RED CELL DISTRIBUTION WIDTH 18.1 % (11.6-17.2); WHITE BLOOD COUNT 7.9 TH/MM3 (4.0-11.0)
[2017-09-02 05:31] LABS: ALBUMIN 2.9 GM/DL (3.4-5.0); ALT (GPT) 80 U/L (12-78); AST (GOT) 28 U/L (15-37); BICARBONATE 24.1 MEQ/L (21.0-32.0); BLOOD UREA NITROGEN 15 MG/DL (7-18); CALCIUM 8.3 MG/DL (8.5-10.1); CHLORIDE 102 MEQ/L (98-107); CREATININE 0.99 MG/DL (0.60-1.30); GLOMERULAR FILTRATION RATE 78 ML/MIN (>89); GLUCOSE,RANDOM 106 MG/DL (74-106); SODIUM (NA) 134 MEQ/L (136-145)
[2017-09-02 05:34] LABS: ALKALINE PHOSPHATASE 93 U/L (45-117); TOTAL BILIRUBIN ADULT 2.3 MG/DL (0.2-1.0); TOTAL PROTEIN 7.6 GM/DL (6.4-8.2)
[2017-09-02 08:00] VITALS: BP 119/81; PULSE 87; RESP 18; TEMP 98.1; O2SAT 98
[2017-09-02 08:41] LABS: BANDS 5 % (0-6); LYMPHOCYTES 20 % (9-44); MONOCYTES 19 % (0-8); MYELOCYTES 1 % (0-0); NEUTROPHIL # MANUAL DIFF 4.6 TH/MM3 (1.8-7.7); POLYS (SEG NEUTROPHILS) 52 % (16-70)
--- NOTE | 2017-09-02 09:27 | HHI.FPPN ---
Subjective Remarks Pt seen and examined this morning. No acute events overnight. Feels back to baseline this morning, wanting to go home. Breathing stable. Denies any chest pain, fever/chills overnight. Has f/u next week at the [facility]. Objective Vitals Vital Signs Date Time Temp Pulse Resp B/P (MAP) Pulse Ox O2 Delivery O2 Flow Rate FiO2 09/02/17 08:00 98.1 87 18 119/81 (94) 98 09/02/17 02:58 98.1 85 18 121/79 (93) 93 09/02/17 00:33 18 09/02/17 00:05 98.8 82 18 122/76 (91) 93 09/01/17 21:03 99.5 81 18 133/79 (97) 95 09/01/17 20:26 93 09/01/17 16:31 98.2 88 18 128/60 (82) 98 09/01/17 12:16 97.9 92 20 130/75 (93) 96 I/O 09/01/17 09/01/17 09/01/17 09/02/17 09/02/17 09/02/17 07:00 15:00 23:00 07:00 15:00 23:00 Intake Total 1200 ml Balance 1200 ml Intake Oral 200 ml IV Total 1000 ml # Voids 2 Result Diagram: 09/02/1740909/02/17409 Imaging Last Impressions Chest X-Ray 08/31/17922 Signed Impressions: Service Date/Time: August 09:51 - CONCLUSION: 1. Focal infiltrate in the left lung base. 2. Multiple old left-sided rib fractures. Brennan Lira MD Thoracentesis Ultrasound 08/31/17 Signed Impressions: Service Date/Time: August 14:13 - CONCLUSION: Uncomplicated ultrasound guided thoracentesis. Gonzales Reese MD Liver Ultrasound 08/31/17 Signed Impressions: Service Date/Time: August 18:26 - CONCLUSION: No evidence of biliary ductal dilatation. The left lobe of the liver is not well-seen. Teddy Joe MD CT Angiography 08/31/17 Signed Impressions: Service Date/Time: August 10:39 - CONCLUSION: 1. No CT evidence for pulmonary embolism through the segmental level. 2. Trace right and small to moderate slightly complex left pleural effusion with associated groundglass opacities is in the lower lobes presumably reflecting atelectasis. 3. Groundglass opacities in the lingula and more subtle ground glass opacities in the right upper lobe may reflect additional volume loss although inflammatory or infectious etiologies cannot be entirely excluded. 4. Moderate coronary artery calcifications. 5. Splenomegaly. Panfilo Bolaños MD Objective Remarks GENERAL: This is a well-nourished, well-developed patient, sitting up in bed. SKIN: Jaundice. Bandage noted on Left side of back over thoracentesis entry site. CARDIOVASCULAR: Normal S1 and S2. Regular rate and rhythm without murmurs, gallops, or rubs. RESPIRATORY: mild rales noted on lower bases more pronounced on Left lower base , improved from yesterday. No wheezes, or rhonchi. GASTROINTESTINAL: Abdomen soft, non-tender, nondistended. MUSCULOSKELETAL: Extremities without clubbing, cyanosis, or edema. No joint tenderness, effusion, or edema noted. No calf tenderness. Negative Homans sign bilaterally. +2 DP pulses BL. NEUROLOGICAL: Awake and alert. Motor and sensory grossly within normal limits. Five out of 5 muscle strength in all muscle groups. Normal speech. A/P Assessment and Plan Patient is a 57-year-old male with past medical history rheumatoid arthritis who presents to the ED with complaints of pleuritic chest pain and malaise that started 2 days ago. Patient found to have left sided pleural effusion on CTA. Admitted for further w/u and treatment of pna. Discharge Planning Today Problem List: (1) Chest pain ICD Codes: R07.9 - Chest pain, unspecified Status: Resolved Plan: Today symptoms have resolved, patient stated he is feeling well. Troponin x 1 negative EKG: sinus rhythm CXR: Focal infiltrate in the Left lung base. Multiple old left sided rib fx. CTA done in the ED showed: No evidence of pulmonary embolism, complex left pleural effusion associated with ground glass opacity in the lower lobes presumably reflecting atelectasis. Inflammatory or infectious etiologies cannot be entirely excluded. Splenomegaly. s/p thoracentesis 08/31 -pleural fluid studies: WBC- 8163, RBC-233 -blood cx no growth to date -rocephin and azithromycin for suspected pna -sputum cx: positive for staphylococcus aureus, f/u susceptibility -Outpatient tx with Clindamycin -neg for influenza A&B titrate oxygen as needed (2) Pleural effusion on left ICD Codes: J90 - Pleural effusion, not elsewhere classified Status: Acute Plan: IR consulted for possible drainage of left pleural effusion s/p thoracentesis 08/31 see plan above (3) Rheumatoid arthritis ICD Codes: M06.9 - Rheumatoid arthritis, unspecified Status: Chronic Plan: Continue with prednisone 5mg and naproxen QD (4) Transaminitis ICD Codes: R74.0 - Nonspecific elevation of levels of transaminase and lactic acid dehydrogenase [LDH] Plan: Pt with elevated liver enzymes. Skin noted to be jaundice on exam, scleral icterus also noted. Normal abdominal exam. AST: 97 ALT: 179 Total bilirubin: 3.9 Direct bili: 1 Indirect bili: 2.9 liver u/s: No evidence of biliary ductal dilation. continue to monitor (5) Nutrition, metabolism, and development symptoms ICD Codes: R63.8 - Other symptoms and signs concerning food and fluid intake Plan: Fluids: will hold off at this time Electrolytes: replete as needed, will continue to monitor Nutrition: Regular diet DVT ppx: SCDs, early ambulation Tico Burnham MD Sep 02, 2017 09:26
[2017-09-02] MEDS: NAPROXEN 375 MG TAB PO SCH (09:42)
[2017-09-02] MEDS: SODIUM CHLORIDE 0.9% FLUSH 10 ML FLUSH IV FLUSH SCH (09:43)
[2017-09-02] MEDS: predniSONE 5 MG TAB PO SCH (09:43)
[2017-09-02] MEDS: DOCUSATE SODIUM 50 MG/SENNA 8.6 MG TAB PO SCH (09:43)
--- NOTE | 2017-09-02 09:45 | HHI.DCPOC ---
Discharge Care Plan Diagnosis: (1) Pleural effusion on left (2) Transaminitis (3) Rheumatoid arthritis Goals to Promote Your Health * To prevent worsening of your condition and complications * To maintain your health at the optimal level Directions to Meet Your Goals Take your medications as prescribed Follow your dietary instruction Follow activity as directed Keep your appointments as scheduled Take your immunizations and boosters as scheduled If your symptoms worsen call your PCP, if no PCP go to Urgent Care Center or Emergency Room Smoking is Dangerous to Your Health. Avoid second hand smoke Call the 24-hour hour crisis hotline for domestic abuse at Tico Burnham MD Sep 02, 2017 09:45
[2017-09-02] MEDS ORDERED: CLIN300C5 PO (09:47)
--- NOTE | 2017-09-02 09:49 | HHI.DS ---
Discharge Summary Admission Date Aug 31, 2017 at 12:54 Discharge Date: Sep 02, 2017 Admitting Diagnosis Pneumonia with plueral effusion. (1) Chest pain Diagnosis: Principal Plan: Today symptoms have resolved, patient stated he is feeling well. Troponin x 1 negative EKG: sinus rhythm CXR: Focal infiltrate in the Left lung base. Multiple old left sided rib fx. CTA done in the ED showed: No evidence of pulmonary embolism, complex left pleural effusion associated with ground glass opacity in the lower lobes presumably reflecting atelectasis. Inflammatory or infectious etiologies cannot be entirely excluded. Splenomegaly. s/p thoracentesis 08/31 -pleural fluid studies: WBC- 8163, RBC-233 -blood cx no growth to date -rocephin and azithromycin for suspected pna -sputum cx: positive for staphylococcus aureus, f/u susceptibility -Outpatient tx with Clindamycin -neg for influenza A&B titrate oxygen as needed ICD Codes: R07.9 - Chest pain, unspecified Status: Resolved (2) Pleural effusion on left Diagnosis: Principal Plan: IR consulted for possible drainage of left pleural effusion s/p thoracentesis 08/31 see plan above ICD Codes: J90 - Pleural effusion, not elsewhere classified Status: Acute (3) Rheumatoid arthritis Diagnosis: Secondary Plan: Continue with prednisone 5mg and naproxen QD ICD Codes: M06.9 - Rheumatoid arthritis, unspecified Status: Chronic (4) Transaminitis Diagnosis: Secondary Plan: Pt with elevated liver enzymes. Skin noted to be jaundice on exam, scleral icterus also noted. Normal abdominal exam. AST: 97 ALT: 179 Total bilirubin: 3.9 Direct bili: 1 Indirect bili: 2.9 liver u/s: No evidence of biliary ductal dilation. continue to monitor ICD Codes: R74.0 - Nonspecific elevation of levels of transaminase and lactic acid dehydrogenase [LDH] (5) Nutrition, metabolism, and development symptoms Diagnosis: Secondary Plan: Fluids: will hold off at this time Electrolytes: replete as needed, will continue to monitor Nutrition: Regular diet DVT ppx: SCDs, early ambulation ICD Codes: R63.8 - Other symptoms and signs concerning food and fluid intake Procedures Thoracentesis Brief History Patient is a 57-year-old male with past medical history rheumatoid arthritis who presents to the ED with complaints of pleuritic chest pain and malaise that started 2 days ago. Patient stated that 2 days ago he developed multitude of symptoms including: Pleuritic chest pain (rates 9/10, radiating straight to his back), night sweats, shortness of breath, nausea, subjective fevers, cough productive of white sputum and blurred vision. Patient reports that symptoms came on all of a sudden. Denies ever having anything like this happen in the past. Patient denies any sick contacts. Of note: patient drove down from [place] on Monday. CTA done in the ED showed: No evidence of pulmonary embolism, complex left pleural effusion associated with ground glass opacity in the lower lobes presumably reflecting atelectasis. Inflammatory or infectious etiologies cannot be entirely excluded. Splenomegaly. Patient was started on Rocephin for suspected pna. CBC/BMP: 09/02/17 0410 09/02/17 0410 Significant Findings Laboratory Tests Test 08/31/17 09:30 08/31/17 14:01 08/31/17 15:40 09/01/17 06:54 Red Blood Count 3.85 MIL/MM3 (4.50-5.90) 3.86 MIL/MM3 (4.50-5.90) Hemoglobin 11.4 GM/DL (13.0-17.0) 11.4 GM/DL (13.0-17.0) Hematocrit 32.9 % (39.0-51.0) 33.1 % (39.0-51.0) Red Cell Distribution Width 18.2 % (11.6-17.2) 18.1 % (11.6-17.2) Monocytes (%) (Auto) 31.0 % (0.0-8.0) 28.5 % (0.0-8.0) Monocytes # (Auto) 2.9 TH/MM3 (0-0.9) 2.4 TH/MM3 (0-0.9) Sodium Level 132 MEQ/L (136-145) 134 MEQ/L (136-145) Estimat Glomerular Filtration Rate 62 ML/MIN (>89) 71 ML/MIN (>89) Total Bilirubin 3.9 MG/DL (0.2-1.0) Direct Bilirubin 1.0 MG/DL (0.0-0.2) Indirect Bilirubin 2.9 MG/DL (0.0-0.8) Aspartate Amino Transf (AST/SGOT) 97 U/L (15-37) Alanine Aminotransferase (ALT/SGPT) 179 U/L (12-78) Troponin I LESS THAN 0.02 NG/ML Albumin 3.3 GM/DL (3.4-5.0) Prothrombin Time 11.8 SEC (9.8-11.6) Pleural Fluid WBC 8163 /MM3 (0-10) Pleural Fluid RBC 233 /MM3 (0-0) Band Neutrophils % 7 % (0-6) Monocytes % 28 % (0-8) Metamyelocytes 2 % (0-1) Plasma Cells 1 % (0-0) Random Glucose 130 MG/DL (74-106) Test 09/02/17 04:10 Red Blood Count 3.57 MIL/MM3 (4.50-5.90) Hemoglobin 10.5 GM/DL (13.0-17.0) Hematocrit 30.2 % (39.0-51.0) Red Cell Distribution Width 18.1 % (11.6-17.2) Monocytes (%) (Auto) 23.7 % (0.0-8.0) Monocytes # (Auto) 1.9 TH/MM3 (0-0.9) Monocytes % 19 % (0-8) Myelocytes 1 % (0-0) Albumin 2.9 GM/DL (3.4-5.0) Calcium Level 8.3 MG/DL (8.5-10.1) Alanine Aminotransferase (ALT/SGPT) 80 U/L (12-78) Total Bilirubin 2.3 MG/DL (0.2-1.0) Sodium Level 134 MEQ/L (136-145) Estimat Glomerular Filtration Rate 78 ML/MIN (>89) PE at Discharge GENERAL: This is a well-nourished, well-developed patient, sitting up in bed. SKIN: Jaundice. Bandage noted on Left side of back over thoracentesis entry site. CARDIOVASCULAR: Normal S1 and S2. Regular rate and rhythm without murmurs, gallops, or rubs. RESPIRATORY: mild rales noted on lower bases more pronounced on Left lower base , improved from yesterday. No wheezes, or rhonchi. GASTROINTESTINAL: Abdomen soft, non-tender, nondistended. MUSCULOSKELETAL: Extremities without clubbing, cyanosis, or edema. No joint tenderness, effusion, or edema noted. No calf tenderness. Negative Homans sign bilaterally. +2 DP pulses BL. NEUROLOGICAL: Awake and alert. Motor and sensory grossly within normal limits. Five out of 5 muscle strength in all muscle groups. Normal speech. Hospital Course 57-year-old male with history of rheumatoid arthritis presents with chest pain and shortness of breath. Found to have left-sided pleural effusion with possible pneumonia x-ray. Patient was admitted and started on IV antibiotics, including Rocephin and azithromycin for community acquired pneumonia. Ultrasound thoracentesis was also performed. Fluid studies consistent with exudative analysis. Patient shortness of breath and chest pain improved greatly after the thoracentesis. He remained stable, without requiring any oxygen. Sputum cultures growing staph aureus, likely MSSA. Patient will be discharged on oral clindamycin. He states [facility] Pt Condition on Discharge: Stable Discharge Disposition: Discharge Home Discharge Instructions DIET: Follow Instructions for: As Tolerated, No Restrictions Activities you can perform: Regular-No Restrictions Follow up Referrals: PCP Follow-up - 1 Week New Medications: Clindamycin (Clindamycin) 300 Mg Cap 600 MG PO Q8H for Infection, #15 CAP 0 Refills Continued Medications: Prednisone (Prednisone) 5 Mg Tab 5 MG PO DAILY, TAB 0 Refills Tico Burnham MD Sep 02, 2017 09:49
[2017-09-02 15:22] LABS: AMYLASE BODY FLUID 58 U/L; AMYLASE BODY FLUID TYPE PLEURAL
== END 2017-09-02 10:43 | disposition home or self-care (01) ==
LOC: NEPC 08:52 → NEDA 12:54 → NEPHCDU 16:27
PROVIDERS: ADMIT Family Medicine; ATTEND Family Medicine
DX: J90 Pleural effusion, not elsewhere classified (principal); J18.1 Lobar pneumonia, unspecified organism; R74.0 Nonspecific elevation of levels of transaminase and lactic acid dehydrogenase [LDH]; R74.8 Abnormal levels of other serum enzymes; H53.8 Other visual disturbances; M06.9 Rheumatoid arthritis, unspecified; R16.1 Splenomegaly, not elsewhere classified; R17 Unspecified jaundice
CPT/HCPCS: 32555; 71045; 71275; 76705; 80048; 80053; 80076; 82150; 82550; 82945; 83615; 83880; 83986; 84157; 84484; 85007; 85025; 85027; 85610; 85730; 87015; 87040; 87070; 87102; 87116; 87205; 87206; 87804; 88112; 88305; 89051; 93005; 94150; 96365; 96366; 96367; 96368; 99285; C1729; G0378; J0456; J0696; J7050; J7512; Q9967

== ENCOUNTER 2017-09-08 12:43 | Emergency (ER) | payer OTHER ==
[~2017-09-08] VITALS: Ht 170.2 cm; Wt 100.0 kg
[~2017-09-08 12:43] MED LIST changes: +CLIN300C5 PO; -NORC5TAB PO; +PRED5TAB PO
[2017-09-08 13:03] VITALS: BP 129/76; PULSE 95; RESP 20; TEMP 98.3; O2SAT 92
--- NOTE | 2017-09-08 13:54 | PD ---
HPI Chief Complaint: Respiratory Symptoms Time Seen by Provider: 13:24 Travel History International Travel<30 days: No Contact w/Intl Traveler<30days: No History of Present Illness HPI The patient is a 57-year-old male who presents to the emergency department for possible pneumonia. The patient was recently hospitalized August 31 through September 02 at [facility]. The patient a multiple chest x- rays, CT pulmonary angiogram and underwent thoracentesis the left lower lung. The patient's symptoms improved and he was discharged home on clindamycin. However, the patient continues to have some shortness of breath, productive cough producing white sputum, and fever last night. The patient plays a subjective fever, chills, sweats, cough, and mild shortness of breath. He has a remote history of tobacco use. The patient apparently had an outpatient x- ray performed at the [facility] which revealed pneumonia was advised to come to come to [facility] for further evaluation and management. The patient's primary physician is the [facility]. PFSH Past Medical History Arthritis: Yes (RHEUMATOID ARTHRITIS) Asthma: No Autoimmune Disease: No Blood Disorders: No Anxiety: No Depression: No Heart Rhythm Problems: No Cancer: No Cardiovascular Problems: No High Cholesterol: No Chest Pain: No Congestive Heart Failure: No COPD: No Cerebrovascular Accident: No Diabetes: No Endocrine: No Gastrointestinal Disorders: Yes GERD: No Genitourinary: No (GERD) Hiatal Hernia: No Immune Disorder: No Kidney Stones: No Musculoskeletal: Yes (RA ) Neurologic: No Psychiatric: No Reproductive: No Respiratory: No Migraines: No Renal Failure: No Seizures: No Sickle Cell Disease: No Sleep Apnea: No Thyroid Disease: No Ulcer: No Past Surgical History Abdominal Surgery: No AICD: No Arteriovenous Shunt: No Cardiac Surgery: No Cholecystectomy: Yes Ear Surgery: No Endocrine Surgery: No Eye Surgery: No Genitourinary Surgery: No Gynecologic Surgery: No Insulin Pump: No Joint Replacement: No Oral Surgery: No Pacemaker: No Thoracic Surgery: No Other Surgery: Yes Social History Alcohol Use: Yes (10 BEERS DAILY quit 1 week ago ) Tobacco Use: No Substance Use: No Allergies-Medications (Allergen,Severity, Reaction): Coded Allergies: lorazepam (Verified Adverse Reaction, Unknown, Irritability/Anxiety, ) STATES "IT MAKES ME GO CRAZY" Reported Meds & Prescriptions Reported Meds & Active Scripts Active Clindamycin (Clindamycin HCl) 300 Mg Cap 600 Mg PO Q8H Reported Prednisone 5 Mg Tab 5 Mg PO DAILY Review of Systems Except as stated in HPI: all other systems reviewed are Neg General / Constitutional: Positive: Fever, Chills HENT: Positive: Congestion Cardiovascular: No: Chest Pain or Discomfort Respiratory: Positive: Cough, Shortness of Breath Gastrointestinal: No: Nausea, Vomiting, Abdominal Pain Genitourinary: No: Dysuria Musculoskeletal: No: Edema Physical Exam Narrative GENERAL: Awake, alert, pleasant 57-year-old male who appears his stated age and is in no acute respiratory distress. SKIN: Focused skin assessment warm/dry. HEAD: Atraumatic. Normocephalic. EYES: Pupils equal and round. No scleral icterus. No injection or drainage. ENT: No nasal bleeding or discharge. Mucous membranes pink and moist. NECK: Trachea midline. No JVD. CARDIOVASCULAR: Regular rate and rhythm. No murmur appreciated. RESPIRATORY: No accessory muscle use. Diminished breath sounds in the right base. Rhonchi noted right base. GASTROINTESTINAL: Abdomen soft, non-tender, nondistended. No rebound tenderness. MUSCULOSKELETAL: No obvious deformities. No clubbing. No cyanosis. No edema. NEUROLOGICAL: Awake and alert. No obvious cranial nerve deficits. Motor grossly within normal limits. Normal speech. PSYCHIATRIC: Appropriate mood and affect; insight and judgment normal. Data Data Last Documented VS Vital Signs Date Time Temp Pulse Resp B/P (MAP) Pulse Ox O2 Delivery O2 Flow Rate FiO2 09/08/17 14:21 97 09/08/17 14:21 Room Air 09/08/17 13:03 98.3 95 20 129/76 (93) Orders Orders Complete Blood Count With Diff (09/08/17 13:06) Basic Metabolic Panel (Bmp) (09/08/17 13:06) Blood Culture (09/08/17 13:06) Iv Access Insert/Monitor (09/08/17 13:06) Ecg Monitoring (09/08/17 13:06) Oxygen Administration (09/08/17 13:06) Oximetry (09/08/17 13:06) Electrocardiogram (09/08/17 13:06) Chest, Single Ap (09/08/17 ) Cefepime Inj (Maxipime Inj) (09/08/17 14:30) Azithromycin Inj (Zithromax Inj) (09/08/17 14:30) Blood Culture (09/08/17 14:25) Lactic Acid (09/08/17 14:25) Albuterol-Ipratropium Neb (Duoneb Neb) (09/08/17 14:30) Influenzae A/B Antigen (09/08/17 14:35) Labs Laboratory Tests Test 09/08/17 13:35 White Blood Count 9.5 TH/MM3 Red Blood Count 4.07 MIL/MM3 Hemoglobin 11.5 GM/DL Hematocrit 34.1 % Mean Corpuscular Volume 83.7 FL Mean Corpuscular Hemoglobin 28.3 PG Mean Corpuscular Hemoglobin Concent 33.9 % Red Cell Distribution Width 17.3 % Platelet Count 286 TH/MM3 Mean Platelet Volume 6.4 FL CBC Comment AUTO DIFF Differential Total Cells Counted 100 Neutrophils % (Manual) 67 % Band Neutrophils % 1 % Lymphocytes % 9 % Monocytes % 20 % Eosinophils % 2 % Neutrophils # (Manual) 6.6 TH/MM3 Myelocytes 1 % Nucleated Red Blood Cells 1 /100 WBC Differential Comment FINAL DIFF MANUAL Platelet Estimate NORMAL Platelet Morphology Comment NORMAL Blood Urea Nitrogen 15 MG/DL Creatinine 1.04 MG/DL Random Glucose 99 MG/DL Calcium Level 9.5 MG/DL Sodium Level 132 MEQ/L Potassium Level 4.1 MEQ/L Chloride Level 101 MEQ/L Carbon Dioxide Level 20.7 MEQ/L Anion Gap 10 MEQ/L Estimat Glomerular Filtration Rate 73 ML/MIN Lactic Acid Level 1.1 mmol/L [facility] Medical Decision Making Medical Screen Exam Complete: Yes Emergency Medical Condition: Yes Medical Record Reviewed: Yes Interpretation(s) EKG reveals normal sinus rhythm with a rate 84. Wavy baseline in V2 and V3. Last Impressions Chest X-Ray 09/08/17 0000 Signed Impressions: Service Date/Time: Friday, September 08, 2017 13:49 - CONCLUSION: 1. Basilar airspace disease in the right pain in the left with probable small right effusion. Differential diagnosis includes bronchopneumonia. Eric Lopez MD Laboratory Tests Test 09/08/17 13:35 White Blood Count 9.5 TH/MM3 Red Blood Count 4.07 MIL/MM3 Hemoglobin 11.5 GM/DL Hematocrit 34.1 % Mean Corpuscular Volume 83.7 FL Mean Corpuscular Hemoglobin 28.3 PG Mean Corpuscular Hemoglobin Concent 33.9 % Red Cell Distribution Width 17.3 % Platelet Count 286 TH/MM3 Mean Platelet Volume 6.4 FL CBC Comment AUTO DIFF Differential Total Cells Counted 100 Neutrophils % (Manual) 67 % Band Neutrophils % 1 % Lymphocytes % 9 % Monocytes % 20 % Eosinophils % 2 % Neutrophils # (Manual) 6.6 TH/MM3 Myelocytes 1 % Nucleated Red Blood Cells 1 /100 WBC Differential Comment FINAL DIFF MANUAL Platelet Estimate NORMAL Platelet Morphology Comment NORMAL Blood Urea Nitrogen 15 MG/DL Creatinine 1.04 MG/DL Random Glucose 99 MG/DL Calcium Level 9.5 MG/DL Sodium Level 132 MEQ/L Potassium Level 4.1 MEQ/L Chloride Level 101 MEQ/L Carbon Dioxide Level 20.7 MEQ/L Anion Gap 10 MEQ/L Estimat Glomerular Filtration Rate 73 ML/MIN Lactic Acid Level 1.1 mmol/L Differential Diagnosis Differential diagnosis includes pneumonia, pleural effusion, pneumothorax, hemothorax, pulmonary embolism, lung cancer, obstructive pneumonia. Narrative Course IV was established, labs are drawn and sent, and the patient was placed on cardiac telemetry monitoring and continuous pulse oximetry monitoring. Chest x- rays obtained. Blood culture and lactic gas were sent to lab. I reviewed the patient's EMR. Chest x-ray reveals bilateral pneumonia suspicious for bronchopneumonia, x-rays different the next 3 on previous admission. White count is normal. Lactic acid is within normal limits. The patient is reevaluated after duo nebs, symptoms did improve. He did receive guanfenesin and albuterol inhaler from the [facility] this morning. I had a discussion with the patient regarding 23 hour observation and IV antibiotics versus outpatient follow-up, patient would prefer outpatient treatment and follow-up. He will be sent home on Levaquin. Advised to use the inhaler and cough medicine as directed previously. He will also be placed on 5 days of prednisone. He is advised to return for increasing fevers, increasing shortness of breath, or inability to tolerate his medications. Diagnosis Primary Impression: Pneumonia Qualified Codes: J18.9 - Pneumonia, unspecified organism Patient Instructions: General Instructions Additional Instructions: Levaquin as directed. Cough medicine and albuterol inhalers previously directed by [facility]. Return if symptoms worsen or progress. Follow-up with your primary physician. Please provide the patient a copy of his x-ray results and lab results at discharge. Med/Other Pt SpecificInfo: Prescription(s) given Scripts Prednisone (Prednisone) 20 Mg Tab 40 MG PO DAILY for 5 Days, #10 TAB 0 Refills Take 40 mg (2 tablets) daily for 5 days Prov: David Hart MD 09/08/17 Levofloxacin (Levaquin) 500 Mg Tablet 500 MG PO DAILY for Infection for 10 Days, #10 TAB 0 Refills Prov: David Hart MD 09/08/17 Disposition: 01 DISCHARGE HOME Condition: Stable David Hart MD Sep 08, 2017 13:54
[2017-09-08 13:58] LABS: HEMATOCRIT 34.1 % (39.0-51.0); HEMOGLOBIN 11.5 GM/DL (13.0-17.0); MEAN CELL VOLUME 83.7 FL (80.0-100.0); MEAN CORPUSCULAR HEMOGLOBIN 28.3 PG (27.0-34.0); MEAN CORPUSCULAR HGB CONC 33.9 % (32.0-36.0); MEAN PLATELET VOLUME 6.4 FL (7.0-11.0); PLATELET COUNT 286 TH/MM3 (150-450); RED BLOOD COUNT 4.07 MIL/MM3 (4.50-5.90); RED CELL DISTRIBUTION WIDTH 17.3 % (11.6-17.2); WHITE BLOOD COUNT 9.5 TH/MM3 (4.0-11.0)
--- NOTE | 2017-09-08 14:08 | RADRPT ---
EXAM DATE/TIME: 09/08/2017 13:49 [facility] COMPARISON: No previous studies available for comparison. INDICATIONS : Shortness of breath, cough, and wheezing. MEDICAL HISTORY : Rheumatoid arthritis. SURGICAL HISTORY : Cholecystectomy. Bilateral wrist surgery. Left hip surgery. Thoracentesis. ENCOUNTER: Initial ACUITY: 3 days PAIN SCORE: 0/10 LOCATION: Bilateral chest FINDINGS: First bilateral mostly basilar airspace disease. No significant effusion. No pneumothorax. Heart size enlarged. No acute bony abnormalities. CONCLUSION: 1. Basilar airspace disease in the right pain in the left with probable small right effusion. Differe ntial diagnosis includes bronchopneumonia. Eric Lopez MD on September 08, 2017 at 14:05 Board Certified Radiologist. This report was verified electronically.
[2017-09-08 14:18] LABS: BICARBONATE 20.7 MEQ/L (21.0-32.0); CALCIUM 9.5 MG/DL (8.5-10.1); CREATININE 1.04 MG/DL (0.60-1.30)
[2017-09-08] MEDS ORDERED: RESP: ALBUTEROL 2.5 MG/IPRATROPIUM 0.5 MG NEB (SCH) NEB ONE (14:30)
[2017-09-08] MEDS ORDERED: AZITHROMYCIN INJ 500 MG in SODIUM CHLOR 0.9% 250 ML INJ 250 ML IV ONE (14:30)
[2017-09-08] MEDS ORDERED: CEFEPIME INJ 2,000 MG in SODIUM CHLORIDE 0.9% INJ 100 ML IV ONE (14:30)
[2017-09-08 15:22] LABS: BANDS 1 % (0-6); CORRECTED NUCLEATED RBC 1 /100 WBC (0-0); LYMPHOCYTES 9 % (9-44); MONOCYTES 20 % (0-8); MYELOCYTES 1 % (0-0); NEUTROPHIL # MANUAL DIFF 6.6 TH/MM3 (1.8-7.7); NUCLEATED RED BLOOD CELL 1 (0-0); POLYS (SEG NEUTROPHILS) 67 % (16-70)
[2017-09-08] MEDS ORDERED: LEVA500T33 PO (15:27)
[2017-09-08] MEDS ORDERED: PRED20 PO (15:27)
--- NOTE | 2017-09-09 18:10 | EKG ---
Date Performed: 09/08/2017 Time Performed: 14:29:25 PTAGE: 57 years EKG: Sinus rhythm BORDERLINE LEFT AXIS DEVIATION BORDERLINE ECG Since PREVIOUS TRACING , no significant change noted PREVIOUS TRACING 08/31/2017 09.00 DOCTOR: Taqueria Bourne Interpretating Date/Time 09/09/2017 18:08:43
== END 2017-09-08 16:48 | disposition home or self-care (01) ==
LOC: NEPE 12:43
DX: J18.9 Pneumonia, unspecified organism (principal); Z87.891 Personal history of nicotine dependence
CPT/HCPCS: 71045; 80048; 83605; 85007; 85027; 87040; 87804; 93005; 94664; 96365; 96366; 96367; 99285; J0456; J0692; J7050